=== PATIENT | male | born 1940 | race Caucasian/White ===

== ENCOUNTER → 2020-07-22 09:18 | Outpatient (CLI) | payer MEDICARE, SELFPAY ==
[2020-07-22 10:15] LABS: Add Manual Diff / Slide Review NO; Basophils Absolute Auto 100 /uL (0-100); Basophils Percent Auto 1.3 % (0-2); Eosinophils Absolute Auto 100 /uL (0-450); Eosinophils Percent Auto 0.8 % (2-4); Hemoglobin 12.1 g/dL (13.5-17.5); Lymphocytes Absolute Auto 2000 /uL (1100-4500); Lymphocytes Percent Auto 20.9 % (25-40); Mean Corpuscular HGB Conc 32.7 % (30-36); Mean Corpuscular Hemoglobin 29.7 PG (26-34); Mean Corpuscular Volume 90.7 fL (80-100); Monocytes Absolute Auto 1000 /uL (0-900); Monocytes Percent Auto 10.4 % (3-14); Neutrophils Absolute Auto 6500 /uL (1500-7000); Neutrophils Percent Auto 66.6 % (50-75); Platelet Count 376 X10^3/uL (150-400); Red Blood Cell Count 4.08 X10^6/uL (4.5-5.9); Red Cell Distribution Width 14.1 % (11.6-14.8); White Blood Cell Count 9.7 X10^3/uL (4.5-11.0)
[2020-07-22 11:16] LABS: Creatinine Urine Random 90.2 mg/dL
[2020-07-22 11:18] LABS: Microalbumin Urine Random 3.7 mg/dL (0-1.6)
[2020-07-22 11:43] LABS: Alanine Aminotransferase 25 IU/L (<50); Albumin 4.1 g/dL (3.5-5.0); Albumin Globulin Ratio 1.2 (1.0-2.8); Alkaline Phosphatase 172 U/L (38-126); Aspartate Aminotransferase 27 IU/L (17-59); BUN Creatinine Ratio 19.8 (6-22); Bilirubin Total 0.7 mg/dL (0.2-1.3); Blood Urea Nitrogen 19 mg/dL (9-20); Calcium 10.5 mg/dL (8.4-10.2); Carbon Dioxide 29 mmol/L (22-32); Chloride 105 mmol/L (98-107); Cholesterol 92 mg/dL (140-199); Estimated Glomerular Filt Rate > 60.0 mL/min (>60); Globulin 3.3 g/dL (1.7-4.1); Glucose 132 mg/dL (80-110); HDL Cholesterol 25 mg/dL (40-60); HEMOLYSIS < 15 (0-50); LDL Cholesterol Calculated 53 mg/dL (<100); Potassium 4.7 mmol/L (3.4-5.1); Sodium 141 mmol/L (137-145); TSH w/ Reflex to FT4 2.02 uIU/mL (0.47-4.68); Total Protein 7.4 g/dL (6.3-8.2); Triglycerides 69 mg/dL (35-150)
[2020-07-22 12:11] LABS: Hemoglobin A1C% w Est Avg Glu 7.6 % (4.0-6.0)
== END ==
PROVIDERS: PCP Family Medicine; Referring Provider Family Medicine; Visit Provider Family Medicine
DX: I25.10 Atherosclerotic heart disease of native coronary artery without angina pectoris (principal); R73.03 Prediabetes; Z12.11 Encounter for screening for malignant neoplasm of colon; Z12.5 Encounter for screening for malignant neoplasm of prostate; Z13.220 Encounter for screening for lipoid disorders; Z13.29 Encounter for screening for other suspected endocrine disorder; Z95.1 Presence of aortocoronary bypass graft
CPT/HCPCS: 36415; 80053; 80061; 82043; 82570; 83036; 84443; 85025; G0103

== ENCOUNTER → 2020-07-24 15:46 | Outpatient (CLI) | payer MEDICARE, SELFPAY ==
[2020-07-24 16:39] LABS: Reticulocyte Count, Percent 0.4 % (0.87-2.60)
[2020-07-24 17:09] LABS: Ferritin 74 ng/mL (18-464)
[2020-07-24 17:40] LABS: Folate 15.5 ng/mL (2.76-20.0); Vitamin B12 Reflex MMA if <400 874 pg/mL (239-931)
[2020-07-25 18:11] LABS: Calcium 9.6 mg/dL (8.6-10.2); Parathyroid Hormone, Intact 40 pg/mL (15-65)
== END ==
PROVIDERS: PCP Family Medicine; Referring Provider Family Medicine; Visit Provider Family Medicine
DX: D64.9 Anemia, unspecified (principal); E83.52 Hypercalcemia; R41.89 Other symptoms and signs involving cognitive functions and awareness
CPT/HCPCS: 36415; 82310; 82607; 82728; 82746; 83970; 85045

== ENCOUNTER → 2020-07-25 18:02 | Outpatient (ROUT) | payer MEDICARE, SELFPAY ==
[2020-07-26 15:41] LABS: Fecal Immunochemical Test Negative (Negative)
== END ==
PROVIDERS: PCP Family Medicine; Visit Provider Family Medicine
DX: I25.10 Atherosclerotic heart disease of native coronary artery without angina pectoris (principal); R73.03 Prediabetes; Z12.11 Encounter for screening for malignant neoplasm of colon; Z12.5 Encounter for screening for malignant neoplasm of prostate; Z13.220 Encounter for screening for lipoid disorders; Z13.29 Encounter for screening for other suspected endocrine disorder; Z95.1 Presence of aortocoronary bypass graft
CPT/HCPCS: 82274

== ENCOUNTER → 2020-11-12 09:09 | Outpatient (CLI) | payer MEDICARE, SELFPAY ==
[2020-11-12 11:27] LABS: Prostate Specific Antigen 6.06 ng/mL (0.10-4.00)
== END ==
PROVIDERS: Specialist; PCP Family Medicine; Referring Provider Family Medicine; Visit Provider Family Medicine
DX: N40.0 Benign prostatic hyperplasia without lower urinary tract symptoms (principal)
CPT/HCPCS: 36415; 84153

== ENCOUNTER → 2021-01-13 15:23 | Outpatient (CLI) | payer MEDICARE, SELFPAY ==
[2021-01-13 16:18] LABS: BUN Creatinine Ratio 23.1 (6-22); Blood Urea Nitrogen 24 mg/dL (9-20); Carbon Dioxide 27 mmol/L (22-32); Chloride 105 mmol/L (98-107); Estimated Glomerular Filt Rate > 60.0 mL/min (>60); Glucose 140 mg/dL (80-110); HEMOLYSIS < 15 (0-50); Potassium 4.7 mmol/L (3.4-5.1); Sodium 140 mmol/L (137-145)
== END ==
PROVIDERS: PCP Family Medicine; Referring Provider Specialist; Visit Provider Specialist
DX: R94.4 Abnormal results of kidney function studies (principal)
CPT/HCPCS: 36415; 80048

== ENCOUNTER → 2021-01-13 15:25 | Outpatient (CLI) | payer MEDICARE, SELFPAY ==
--- NOTE | 2021-01-13 15:26 | DI.ECHO.S_ITS ---
[place] [facility] +---------+ : : [address] : : : : [id number] : : : : Phone: [phone]+ Echocardiogram Report + + :Name: BURT MONTANO Study Date: 01/13/2021 Height: 70 in : :[facility] ReadingLocation: Weight: 202 lb : : Gender: Male BSA: 2.1 m2 : :: 1940 Age: 80 yrs BP: 141/80 mmHg: :Reason For Study: CARDIAC MURMUR : :Ordering Physician: JOSEFINA, : :LUCY Performed By: Megan Nagy : :Referring: LUCY ROCHA : + + Interpretation Summary The left ventricle is normal in size. The ejection fraction is estimated to be 55-60%. Septal motion is consistent with conduction abnormality. There is septal wall mild hypokinesis. The right ventricle is mildly dilated. Right ventricular systolic function is mildly reduced. The aortic valve is mildly calcified. There is mild to moderately reduced leaflet mobility. The peak aortic velocity is 2.2 m/sec. The aortic valve mean gradient is 11.5 mmHg. The calculated aortic valve area is 1.4 cm2. There is mild to moderate aortic stenosis. Mild atherosclerotic plaque(s) in the aortic arch. Procedure: A two-dimensional transthoracic echocardiogram with color flow and Doppler was performed. The study quality was technically adequate. There is no prior echocardiogram noted for this patient. The patient was in sinus rhythm with heart rates between 72-77 bpm during the exam. Left Ventricle: The left ventricle is normal in size. Left ventricular wall thickness is mildly increased. There is no thrombus. The ejection fraction is estimated to be 55-60%. Septal motion is consistent with conduction abnormality. There is septal wall mild hypokinesis. Diastolic parameters suggest a relaxation abnormality of the left ventricle, consistent with probable normal filling pressures. Right Ventricle: The right ventricle is mildly dilated. Right ventricular systolic function is mildly reduced. Atria: The left atrium is mildly dilated. Right atrial size is normal. There is no Doppler evidence for an interatrial shunt. The atrial septum is aneurysmal. Mitral Valve: The mitral valve leaflets appear mildly thickened, but open well. There is mild mitral annular calcification. The mitral valve chordae are thickened and/or calcified. There is trace mitral regurgitation. Aortic Valve: The aortic valve is trileaflet. The aortic valve is mildly calcified. There is mild to moderately reduced leaflet mobility. The peak aortic velocity is 2.2 m/sec. The aortic valve mean gradient is 11.5 mmHg. The calculated aortic valve area is 1.4 cm2. There is mild to moderate aortic stenosis. No aortic regurgitation is present. Tricuspid Valve: The tricuspid valve is normal in structure and function. Pulmonary artery pressures cannot be estimated because of the lack of a measurable TR jet velocity but the IVC suggests a CVP of around 3 mmHg. There is trace tricuspid regurgitation. Pulmonic Valve: The pulmonic valve is not well seen, but is grossly normal. There is trace pulmonic regurgitation. Great Vessels: The aortic root is normal size. The ascending aorta could not be visualized. Mild atherosclerotic plaque(s) in the aortic arch. The IVC is of normal diameter and collapses greater than 50% with a sniff. This suggests a low right atrial pressure of 3 mm Hg. Pericardium/ Pleura There is no pericardial effusion. There is no pleural effusion. MMode/2D Measurements & Calculations LVIDd: 4.9 cm LVOT diam: 2.0 cm LVIDs: 3.1 cm Ao root diam: 3.4 cm FS: 35.8 % Ao Arch Diam (Prox Trans): 3.0 cm EPSS: 1.1 cm IVSd: 0.95 cm LVPWd: 1.3 cm LV gallardo. diameter/BSA (cm/m^2): 2.3 LV sys. diameter/BSA (cm/m^2): 1.5 LA A2 area: 21.9 cm2 RA long axis: 6.1 cm LA A4 area: 22.1 cm2 RA area: 20.1 cm2 LA length (vol): 5.9 cm RA vol: 56.3 ml LA vol: 70.2 ml RA : 26.9 ml/m2 LA vol index: 33.5 ml/m2 IVC diam: 0.78 cm RVD1 (basal): 4.4 cm TAPSE: 1.0 cm Doppler Measurements & Calculations Ao V2 max: 221.9 cm/sec LVOT Max Phillip: 99.4 cm/sec Ao V2 mean: 158.7 cm/sec LV V1 max P.0 mmHg Ao max P.1 mmHg LV V1 VTI: 20.2 cm Ao mean P.5 mmHg NATASHA(I,D): 1.4 cm2 Ao V2 VTI: 47.7 cm NATASHA(V,D): 1.4 cm2 sev ratio: 0.42 NATASHA indexed to BSA (cm^2/m^2): 0.65 MV E max phillip: 70.7 cm/sec PA V2 max: 91.3 cm/sec MV A max phillip: 113.9 cm/sec PA V2 mean: 66.4 cm/sec MV E/A: 0.62 PA mean P.9 mmHg Med Peak E' Phillip: 5.2 cm/sec PA pr(Accel): 39.6 mmHg E/E' med: 13.5 Lat Peak E' Phillip: 8.6 cm/sec E/E' lat: 8.2 E/e' average: 10.9 MV dec time: 0.22 sec SV(LVOT): 65.3 ml Reading Physician:01:08 PM
== END ==
PROVIDERS: PCP Family Medicine; Referring Provider Internal Medicine Cardiovascular Disease; Visit Provider Internal Medicine Cardiovascular Disease
DX: I35.0 Nonrheumatic aortic (valve) stenosis (principal); I70.0 Atherosclerosis of aorta; R01.1 Cardiac murmur, unspecified
CPT/HCPCS: 93306

== ENCOUNTER → 2021-01-21 13:02 | Outpatient (CLI) | payer MEDICARE, SELFPAY ==
--- NOTE | 2021-01-21 13:18 | DI.CT.S_ITS ---
PROCEDURE: CT ABDOMEN PELVIS WO/W CON INDICATIONS: Elevated PSA TECHNIQUE: After the administration of oral contrast, 5 mm thick sections acquired from the diaphragms to the iliac crests. After the administration of intravenous contrast, 5 mm thick sections acquired from the diaphragms to the symphysis. 5 mm thick coronal and sagittal reformats were acquired. For radiation dose reduction, the following was used: automated exposure control, adjustment of mA and/or kV according to patient size. COMPARISON: None. FINDINGS: Image quality: Excellent. ABDOMEN: Lung bases: Lung bases are clear. Heart size is normal. Solid organs: Liver is normal in size and enhancement. Gallbladder appears normal. Biliary system is non-dilated. Pancreas enhances normally. Spleen is normal in size and enhancement. No adrenal nodules. Both kidneys are normal in size. No hydronephrosis or nephrolithiasis. At the left kidney there are 2 cysts, 1 anteriorly having a high internal radiodensity of 60.2 which does not rise with contrast enhancement, and the 2nd set more posteriorly having a water density of -2.3 Hounsfield units. Bowel and peritoneum: Stomach, small and large bowel loops are normal in caliber and wall thickness. No free fluid or air. Nodes and vessels: No retroperitoneal or mesenteric adenopathy by size criteria. Aorta and inferior vena are normal in caliber. Miscellaneous: There is a periumbilical ventral hernia containing a single small bowel loop that it does not appear incarcerated or edematous.. PELVIS: Genitourinary: Bladder wall thickness is normal. The prostate gland is moderately enlarged and appears mildly heterogeneous. A prosthetic mass extending into adjacent structures is not seen Miscellaneous: No inguinal hernias or definite adenopathy but there are 2 small lymph nodes at the external iliac node chain, measuring up to 1.1 x 1.2 cm on the right and 1.0 x 1.5 cm on the left. These do not demonstrate a fatty hilum and may be early manifestation of lazaro metastatic disease. This is seen on series 4, image 172.. Bones: No suspicious bony lesions. No vertebral body compression fractures. IMPRESSION: 1. There are left-sided renal cysts that measure both water and elevated in radiodensity but show no contrast enhancement or malignant-appearing characteristics. No follow-up necessary. 2. There are lymph nodes at the external iliac node chain, 1 each bilaterally, which are of a size and morphology which raises concern for possible early lazaro metastatic disease. Follow-up attention to these structures on subsequent imaging is recommended. 3. No osseous metastatic disease found. Incidental note made of a small periumbilical hernia without evidence of incarceration or strangulation. Dictated by: Zenon Powers M.D. on 01/21/2021 at 16:51 Approved by: Zenon Powers M.D. on 01/21/2021 at 17:00
== END ==
PROVIDERS: PCP Family Medicine; Referring Provider Specialist; Visit Provider Specialist
DX: R97.20 Elevated prostate specific antigen [PSA] (principal); N28.1 Cyst of kidney, acquired; R93.5 Abnormal findings on diagnostic imaging of other abdominal regions, including retroperitoneum
CPT/HCPCS: 74178

== ENCOUNTER → 2021-05-26 08:28 | Outpatient (CLI) | payer MEDICARE, SELFPAY ==
[2021-05-26 14:39] LABS: COVID19 -Nasal RAPID Negative (Negative)
== END ==
PROVIDERS: PCP Family Medicine; Visit Provider Physician Assistant
DX: Z20.822 Contact with and (suspected) exposure to COVID-19 (principal); Z01.812 Encounter for preprocedural laboratory examination
CPT/HCPCS: 87635; C9803

== ENCOUNTER 2021-05-27 07:16 | Day surgery (SDC) | payer MEDICARE, SELFPAY ==
[2021-05-27 07:31] VITALS: BP 154/70; PULSE 74; RESP 18; TEMP 36.2; O2SAT 96; BMI 29.1
[2021-05-27] MEDS: PROPARACAINE 0.5% OPHTH SOL 2 DROPS EYE-OP (07:47)
[2021-05-27] MEDS: CATARACT EYE COMPOUND (10 DROPS/SYRINGE) 3 DROPS EYE-OP (07:49)
--- NOTE | 2021-05-27 09:20 | PM.PREOP ---
Pre-operative Note Interval Note History & Physical reviewed/Exam performed by Physician: Yes Changes to H&P: No
--- NOTE | 2021-05-27 09:20 | PM.OP.1 ---
Operative Date/Time/Diagnoses Pre-op diagnosis: Nuclear Cataract Left eye Post-op diagnosis: same Procedure & Clinicians Surgeon: Taj Gregory Anesthesia Type: MAC +/- and Sedation Operative Notes Procedure in detail: Patient brought to the operating suite. Tetracaine drops placed in the left eye. Patient was prepped and draped in sterile manner. Wire lid speculum was placed in the eye. Betadine drops were placed on the eye. This was irrigated. Lidocaine jelly was placed on the eye. A paracentesis port was created with a side-port blade. 0.1 mL 1% preservative free lidocaine was injected into the anterior chamber. The anterior chamber was deepened with viscoelastic. 2.6 mm keratome was used to create a temporal clear corneal incision. Cystotome and Utrata forceps were used to create continuous tear capsulorrhexis. Balanced salt solution was used to hydro dissect the nucleus. The phacoemulsification handpiece was inserted and the nucleus was removed using the stop and chop technique. The irrigation aspiration handpiece was inserted and the remaining cortex was removed. Anterior chamber was deepened with viscoelastic. An Dewey DIB00 intraocular lens with a power of ??? was injected into the capsular bag. Irrigation aspiration handpiece was inserted and the remaining viscoelastic was removed. Incision was hydrated with balanced salt solution and found to be leak free with pressure with Weck-Sheryl sponges. 0.1 mL Vigamox injected anterior chamber. 0.3 mL Kenalog 10 mg was injected subconjunctivally. Lid speculum was removed. The patient left the operating room in excellent condition. Complications: none Post-operative Condition: stable Disposition: same day surgery
--- NOTE | 2021-05-27 09:21 | PM.OP.1 ---
Operative Date/Time/Diagnoses Pre-op diagnosis: Nuclear cataract right eye Procedure & Clinicians Procedure: Cataract Surgery Same procedure as scheduled: Yes Surgeon: Taj Gregory Anesthesia Type: MAC +/- and Sedation Operative Notes Procedure in detail: Patient brought to the operating suite. Tetracaine drops placed in the right eye. The marking instrument was used to john the vertical and horizontal meridians. Patient was prepped and draped in sterile manner. Wire lid speculum was placed in the eye. Betadine drops were placed on the eye. This was irrigated. Lidocaine jelly was placed on the eye. A paracentesis port was created with a side-port blade. 0.1 mL 1% preservative free lidocaine was injected into the anterior chamber. The anterior chamber was deepened with viscoelastic. 2.6 mm keratome was used to create a temporal clear corneal incision. Cystotome and Utrata forceps were used to create continuous tear capsulorrhexis. Balanced salt solution was used to hydro dissect the nucleus. The phacoemulsification handpiece was inserted and the nucleus was removed using the stop and chop technique. The irrigation aspiration handpiece was inserted and the remaining cortex was removed. Anterior chamber was deepened with viscoelastic. An Dewey [id number] intraocular lens with a power of 22.0 was injected into the capsular bag. Irrigation aspiration handpiece was inserted and the remaining viscoelastic was removed. The lens was rotated to the 180 degree meridian. Incision was hydrated with balanced salt solution and found to be leak free with pressure with Weck-Sheryl sponges. 0.1 mL Vigamox injected anterior chamber. 0.3 mL Kenalog 10 mg was injected subconjunctivally. Lid speculum was removed. The patient left the operating room in excellent condition. Complications: none Post-operative Condition: stable Disposition: same day surgery
[2021-05-27] MEDS: PHENYLEPHRINE/LIDOCAINE VIAL (OR) 0.2 ML EYE-OP (09:41)
[2021-05-27] MEDS: HYALURONATE SODIUM 30 MG-10 MG/ML SYRINGES 1 BOX INTRAOCULA (09:41)
[2021-05-27] MEDS: TETRACAINE 0.5% OPHTH DROPS 4 ML 2 DROPS EYE-OP (09:42)
[2021-05-27] MEDS: MOXIFLOXACIN INJ 4 MG/0.8 ML VIAL 0.5 MG EYE-OP (09:42)
[2021-05-27] MEDS: BALANCED SALT IRRIG SOLN NO.2 500 ML, EPINEPHrine 1 MG IRR (09:42)
[2021-05-27] MEDS: LIDOCAINE 2% (GLYDO) 6 ML GEL TOP (09:42)
[2021-05-27] MEDS: TRIAMCINOLONE 50 MG/5 ML VIAL INJ (09:43)
[2021-05-27 10:09] VITALS: BP 120/68; PULSE 68; RESP 14; TEMP 36.2; O2SAT 96
== END 2021-05-27 10:18 | disposition home or self-care (01) ==
PROVIDERS: PCP Family Medicine; Referring Provider Ophthalmology; Visit Provider Ophthalmology
PROC: (CPT 66984; principal; 2021-05-27 09:15)
DX: H25.11 Age-related nuclear cataract, right eye (principal); I10 Essential (primary) hypertension; E11.9 Type 2 diabetes mellitus without complications; Z79.84 Long term (current) use of oral hypoglycemic drugs; F03.90 Unspecified dementia, unspecified severity, without behavioral disturbance, psychotic disturbance, mood disturbance, and anxiety; I25.10 Atherosclerotic heart disease of native coronary artery without angina pectoris
CPT/HCPCS: 66984; J0171; J2250; J3010; J3301; V2787

== ENCOUNTER → 2021-07-24 07:56 | Outpatient (CLI) | payer MEDICARE, SELFPAY ==
[2021-07-24 08:31] LABS: Add Manual Diff / Slide Review NO; Basophils Absolute Auto 0 /uL (0-100); Basophils Percent Auto 0.5 % (0-2); Eosinophils Absolute Auto 100 /uL (0-450); Eosinophils Percent Auto 0.9 % (2-4); Hematocrit 34.8 % (41-53); Hemoglobin 11.5 g/dL (13.5-17.5); Lymphocytes Absolute Auto 2300 /uL (1100-4500); Lymphocytes Percent Auto 25.8 % (25-40); Mean Corpuscular HGB Conc 33.2 % (30-36); Mean Corpuscular Hemoglobin 29.9 PG (26-34); Mean Corpuscular Volume 90.2 fL (80-100); Monocytes Absolute Auto 900 /uL (0-900); Monocytes Percent Auto 10.6 % (3-14); Neutrophils Absolute Auto 5500 /uL (1500-7000); Neutrophils Percent Auto 62.2 % (50-75); Platelet Count 346 X10^3/uL (150-400); Red Blood Cell Count 3.86 X10^6/uL (4.5-5.9); Red Cell Distribution Width 14.1 % (11.6-14.8); White Blood Cell Count 8.8 X10^3/uL (4.5-11.0)
[2021-07-24 08:40] LABS: Hemoglobin A1C% w Est Avg Glu 7.3 % (4.0-6.0)
[2021-07-24 10:51] LABS: Alanine Aminotransferase 16 IU/L (<50); Albumin 4.1 g/dL (3.5-5.0); Albumin Globulin Ratio 1.4 (1.0-2.8); Alkaline Phosphatase 138 U/L (38-126); Aspartate Aminotransferase 22 IU/L (17-59); BUN Creatinine Ratio 20.2 (6-22); Bilirubin Total 0.6 mg/dL (0.2-1.3); Blood Urea Nitrogen 23 mg/dL (9-20); Calcium 9.7 mg/dL (8.4-10.2); Carbon Dioxide 25 mmol/L (22-32); Chloride 105 mmol/L (98-107); Cholesterol 120 mg/dL (140-199); Estimated Glomerular Filt Rate > 60.0 mL/min (>60); Glucose 141 mg/dL (80-110); HDL Cholesterol 34 mg/dL (40-60); HEMOLYSIS < 15 (0-50); LDL Cholesterol Calculated 67 mg/dL (<100); Potassium 4.9 mmol/L (3.4-5.1); Sodium 139 mmol/L (137-145); Total Protein 7.1 g/dL (6.3-8.2); Triglycerides 95 mg/dL (35-150)
[2021-07-24 11:22] LABS: Prostate Specific Antigen Scrn 6.74 ng/mL (0.1-4.0)
== END ==
PROVIDERS: PCP Family Medicine; Referring Provider Family Medicine; Visit Provider Family Medicine
DX: D64.9 Anemia, unspecified (principal); R73.03 Prediabetes; I25.10 Atherosclerotic heart disease of native coronary artery without angina pectoris; Z12.5 Encounter for screening for malignant neoplasm of prostate; E83.52 Hypercalcemia; R53.83 Other fatigue; R97.20 Elevated prostate specific antigen [PSA]; Z95.1 Presence of aortocoronary bypass graft; R79.89 Other specified abnormal findings of blood chemistry; N40.0 Benign prostatic hyperplasia without lower urinary tract symptoms
CPT/HCPCS: 36415; 80053; 80061; 83036; 85025; G0103

== ENCOUNTER → 2021-07-28 12:48 | Outpatient (CLI) | payer MEDICARE, SELFPAY ==
[2021-07-28 15:05] LABS: COVID19 -Nasal RAPID Negative (Negative)
== END ==
PROVIDERS: PCP Family Medicine; Visit Provider Nurse Practitioner Family
DX: Z20.822 Contact with and (suspected) exposure to COVID-19 (principal); Z01.812 Encounter for preprocedural laboratory examination
CPT/HCPCS: 87635; C9803

== ENCOUNTER 2021-07-29 07:08 | Day surgery (SDC) | payer MEDICARE, SELFPAY ==
[2021-07-29] MEDS: PROPARACAINE 0.5% OPHTH SOL 2 DROPS EYE-OP (07:40)
[2021-07-29] MEDS: CATARACT EYE COMPOUND (10 DROPS/SYRINGE) 3 DROPS EYE-OP (07:46)
[2021-07-29 07:54] VITALS: BP 154/71; PULSE 66; RESP 20; TEMP 36.6; O2SAT 98; BMI 29.7
--- NOTE | 2021-07-29 08:33 | PM.PREOP ---
Pre-operative Note Interval Note History & Physical reviewed/Exam performed by Physician: Yes Changes to H&P: No
--- NOTE | 2021-07-29 08:33 | PM.OP.1 ---
Operative Date/Time/Diagnoses Pre-op diagnosis: Nuclear Cataract Left eye Post-op diagnosis: same Procedure & Clinicians Same procedure as scheduled: Yes Surgeon: Taj Gregory Anesthesia Type: MAC +/- and Sedation Operative Notes Procedure in detail: Patient brought to the operating suite. Tetracaine drops placed in the left eye. Marking instrument was used to john the vertical and horizontal meridians. Patient was prepped and draped in sterile manner. Wire lid speculum was placed in the eye. Betadine drops were placed on the eye. This was irrigated. Lidocaine jelly was placed on the eye. A paracentesis port was created with a side-port blade. 0.1 mL 1% preservative free lidocaine was injected into the anterior chamber. The anterior chamber was deepened with viscoelastic. 2.6 mm keratome was used to create a temporal clear corneal incision. Cystotome and Utrata forceps were used to create continuous tear capsulorrhexis. Balanced salt solution was used to hydro dissect the nucleus. The phacoemulsification handpiece was inserted and the nucleus was removed using the stop and chop technique. The irrigation aspiration handpiece was inserted and the remaining cortex was removed. Anterior chamber was deepened with viscoelastic. An Dewey [id number] intraocular lens with a power of 23.0 was injected into the capsular bag. Irrigation aspiration handpiece was inserted and the remaining viscoelastic was removed. The lens was rotated to the 180 degree meridian. Incision was hydrated with balanced salt solution and found to be leak free with pressure with Weck-Sheryl sponges. 0.1 mL Vigamox injected anterior chamber. 0.3 mL Kenalog 10 mg was injected subconjunctivally. Lid speculum was removed. The patient left the operating room in excellent condition. Complications: none Post-operative Condition: stable Disposition: same day surgery
[2021-07-29] MEDS: HYALURONATE SODIUM 30 MG-10 MG/ML SYRINGES 1 BOX INTRAOCULA (08:47)
[2021-07-29] MEDS: PHENYLEPHRINE/LIDOCAINE VIAL (OR) 0.2 ML EYE-OP (08:50)
[2021-07-29] MEDS: TRIAMCINOLONE 50 MG/5 ML VIAL INJ (08:50)
[2021-07-29] MEDS: MOXIFLOXACIN INJ 4 MG/0.8 ML VIAL 0.5 MG EYE-OP (08:50)
[2021-07-29] MEDS: TETRACAINE 0.5% OPHTH DROPS 4 ML 2 DROPS EYE-OP (08:52)
[2021-07-29] MEDS: BALANCED SALT IRRIG SOLN NO.2 500 ML, EPINEPHrine 1 MG IRR (08:52)
[2021-07-29] MEDS: LIDOCAINE 2% (GLYDO) 6 ML GEL TOP (08:52)
[2021-07-29 09:05] VITALS: BP 128/59; PULSE 65; RESP 12; TEMP 36.2; O2SAT 99
== END 2021-07-29 09:15 | disposition home or self-care (01) ==
PROVIDERS: PCP Family Medicine; Referring Provider Ophthalmology; Visit Provider Ophthalmology
PROC: (CPT 66984; principal; 2021-07-29 08:45)
DX: H25.12 Age-related nuclear cataract, left eye (principal); I10 Essential (primary) hypertension; E78.5 Hyperlipidemia, unspecified; E11.9 Type 2 diabetes mellitus without complications; Z79.84 Long term (current) use of oral hypoglycemic drugs; I25.10 Atherosclerotic heart disease of native coronary artery without angina pectoris
CPT/HCPCS: 66984; J0171; J2250; J3301; V2787

== ENCOUNTER → 2022-07-23 09:37 | Outpatient (CLI) | payer MEDICARE, SELFPAY ==
[2022-07-23 10:54] LABS: Add Manual Diff / Slide Review NO; Basophils Absolute Auto 0 /uL (0-100); Basophils Percent Auto 0.5 % (0-2); Eosinophils Absolute Auto 100 /uL (0-450); Eosinophils Percent Auto 0.9 % (2-4); Hematocrit 35.3 % (41-53); Lymphocytes Absolute Auto 1800 /uL (1100-4500); Lymphocytes Percent Auto 21.5 % (25-40); Mean Corpuscular HGB Conc 33.9 % (30-36); Mean Corpuscular Hemoglobin 30.6 PG (26-34); Mean Corpuscular Volume 90.3 fL (80-100); Monocytes Absolute Auto 900 /uL (0-900); Monocytes Percent Auto 10.4 % (3-14); Neutrophils Absolute Auto 5700 /uL (1500-7000); Neutrophils Percent Auto 66.7 % (50-75); Platelet Count 327 X10^3/uL (150-400); Red Blood Cell Count 3.91 X10^6/uL (4.5-5.9); Red Cell Distribution Width 13.8 % (11.6-14.8); White Blood Cell Count 8.5 X10^3/uL (4.5-11.0)
[2022-07-23 11:14] LABS: Alanine Aminotransferase 21 IU/L (<50); Albumin 4.3 g/dL (3.5-5.0); Albumin Globulin Ratio 1.3 (1.0-2.8); Alkaline Phosphatase 140 U/L (38-126); Aspartate Aminotransferase 22 IU/L (17-59); BUN Creatinine Ratio 23.6 (6-22); Bilirubin Total 0.8 mg/dL (0.2-1.3); Blood Urea Nitrogen 26 mg/dL (9-20); Calcium 10.2 mg/dL (8.4-10.2); Carbon Dioxide 27 mmol/L (22-32); Chloride 103 mmol/L (98-107); Estimated Glomerular Filt Rate > 60 mL/min (>60); Globulin 3.4 g/dL (1.7-4.1); Glucose 156 mg/dL (80-110); HEMOLYSIS < 15 (0-50); Iron 77 ug/dL (49-181); Potassium 4.8 mmol/L (3.4-5.1); Sodium 141 mmol/L (137-145); Total Protein 7.7 g/dL (6.3-8.2)
[2022-07-23 11:24] LABS: Percent Iron Saturation 26 % (20-50); Total Iron Binding Capacity 301 ug/dL (261-462); Transferrin 206 mg/dL (206-381)
[2022-07-23 11:45] LABS: Prostate Specific Antigen Scrn 2.63 ng/mL (0.1-4.0)
[2022-07-23 11:49] LABS: Ferritin 60 ng/mL (18-464)
[2022-07-23 12:04] LABS: Vitamin B12 963 pg/mL (239-931)
== END ==
PROVIDERS: PCP Family Medicine; Referring Provider Family Medicine; Visit Provider Family Medicine
DX: R97.20 Elevated prostate specific antigen [PSA] (principal); N40.0 Benign prostatic hyperplasia without lower urinary tract symptoms; Z12.5 Encounter for screening for malignant neoplasm of prostate
CPT/HCPCS: 36415; 80053; 82607; 82728; 83540; 83550; 85025; G0103

== ENCOUNTER → 2022-07-25 07:40 | Outpatient (CLI) | payer MEDICARE, SELFPAY ==
[2022-07-25 12:18] LABS: Cholesterol 136 mg/dL (140-199); HDL Cholesterol 29 mg/dL (40-60); LDL Cholesterol Calculated 88 mg/dL (<100); Triglycerides 93 mg/dL (35-150)
[2022-07-25 12:49] LABS: Prostate Specific Antigen 2.41 ng/mL (0.10-4.00)
[2022-07-25 13:39] LABS: Hemoglobin A1C% w Est Avg Glu 7.8 % (4.0-6.0)
== END ==
PROVIDERS: PCP Family Medicine; Referring Provider Family Medicine; Visit Provider Family Medicine
DX: E11.9 Type 2 diabetes mellitus without complications (principal); N40.0 Benign prostatic hyperplasia without lower urinary tract symptoms; I25.10 Atherosclerotic heart disease of native coronary artery without angina pectoris
CPT/HCPCS: 36415; 80061; 83036; 84153

== ENCOUNTER 2022-09-16 21:32 | Inpatient (IN) | payer MEDICARE, SELFPAY ==
[2022-09-16 21:37] VITALS: BP 167/76; PULSE 80; RESP 18; TEMP 36.6; O2SAT 95
--- NOTE | 2022-09-16 21:50 | DI.RAD.S_ITS ---
PROCEDURE: XR HIP W PEL IF DONE LT 2V INDICATIONS: fefl 4 days ago,can not stand on left leg TECHNIQUE: AP pelvis with AP and lateral views of the left hip. COMPARISON: None. FINDINGS: Bones: There is a minimally impacted fracture of the left femoral neck. No dislocations. Pelvic ring appears intact. No suspicious bony lesions. Soft tissues: The visualized bowel gas pattern is normal. No suspicious soft tissue calcifications. IMPRESSION: 1. Minimally impacted left femoral neck fracture. Dictated by: Usama Diallo M.D. on 09/16/2022 at 23:25 Approved by: Usama Diallo M.D. on 09/16/2022 at 23:26
--- NOTE | 2022-09-16 21:51 | DI.RAD.S_ITS ---
PROCEDURE: XR RIBS LT MIN 3V W CXR1V INDICATIONS: fell on left side 4 days ago TECHNIQUE: Three views of the left ribs were acquired, along with a single view chest. COMPARISON: None. FINDINGS: Surgical changes and devices: Postsurgical changes demonstrated in the mediastinum with multiple mediastinum wires. Bones and chest wall: No displaced rib fracture identified. No suspicious bony lesions. Overlying soft tissues appear unremarkable. Lungs and pleura: There is mild linear scarring in the left lung base. No pleural effusions or pneumothorax. Mediastinum: Mediastinal contours appear normal. Heart size is enlarged. IMPRESSION: 1. No displaced rib fracture identified. Dictated by: Usama Diallo M.D. on 09/16/2022 at 23:26 Approved by: Usama Diallo M.D. on 09/16/2022 at 23:28
--- NOTE | 2022-09-16 21:57 | ED_ITS ---
HPI - Extremity Injury (Lower) General Chief Complaint: Extremity Injury, Lower Stated Complaint: Left side and leg pain Time Seen by Provider: 09/16/22 21:54 Source: patient and EMS Mode of arrival: EMS History of Present Illness HPI Narrative: 82-year-old male who states that 4 days ago he was walking outside of a supermarket when he slipped and fell and landed on his left hip/side. He did not hit his head. Prior to the fall he did not get lightheaded or have chest pain or palpitations. He is not on blood thinners. He was able to get up and walk afterwards but since that time has had progressively worsening left hip pain/leg pain that has now caused him to not be able to put any pressure on his left leg. He also states that he hit the left side of his chest wall. Related Data Previous Rx's Medication Instructions Recorded finasteride 5 mg tablet See Rx Instructions .Route 06/26/22 .COMPLEX #90 tabs donepezil 10 mg tablet 10 mg PO BEDTIME #90 tabs 08/06/22 metformin 500 mg tablet,extended 500 mg PO BID #180 tabs 08/06/22 release 24 hr sertraline 100 mg tablet See Rx Instructions .Route 08/06/22 .COMPLEX #180 tabs atorvastatin 20 mg tablet 20 mg PO BEDTIME #90 tabs 09/09/22 Allergies Allergy/AdvReac Type Severity Reaction Status Date / Time morphine AdvReac Severe BP dropped Verified 08/06/22 13:37 rapidly Review of Systems Constitutional Constitutional: Reports system reviewed and no additional complaints, except as documented Cardiovascular Cardiovascular: Reports system reviewed and no additional complaints, except as documented Respiratory Respiratory: Reports system reviewed and no additional complaints, except as documented Gastrointestinal Gastrointestinal: Reports system reviewed and no additional complaints, except as documented Musculoskeletal Musculoskeletal: Reports system reviewed and no additional complaints, except as documented Integumentary/Breasts Skin/Breast: Reports system reviewed and no additional complaints, except as documented Neurologic Neurologic: Reports system reviewed and no additional complaints, except as documented Hematologic/Lymphatic On Anticoagulants: No Patient History Medical History Anemia BPH w/o urinary obs/LUTS Cognitive impairment Depression (~2009) Diabetes Elevated PSA measurement Hematuria Hypercalcemia Hyperlipidemia Plantar warts Prediabetes (~2014) Proteinuria Tinnitus (~1995) Type 2 diabetes mellitus Surgical History Anesthesia S/P triple vessel bypass (~2016) Social History marital status: number of children: 1 household members: spouse occupational status: previously employed Smoking Status: Former smoker Tobacco: How many years used: 3 alcohol intake: current substance use type: does not use caffeine: Yes Smoking Status: Former smoker alcohol intake frequency: holidays/special occasions only Substance Use Type: does not use Exam Initial Vital Signs Initial Vital Signs: Vital Signs Temperature 97.9 F 09/16/22 21:37 Pulse Rate 80 09/16/22 21:37 Respiratory Rate 18 09/16/22 21:37 Blood Pressure 167/76 H 09/16/22 21:37 Pulse Oximetry 95 09/16/22 21:37 Oxygen Delivery Method 09/16/22 21:37 Const General: cooperative, comfortable and No ill appearing HENMT Head: normal to inspection and normocephalic Chest Other: Some tenderness to palpation left lower lateral chest wall Resp Effort & Inspection: normal respiratory effort Auscultation: clear to auscultation bilaterally Cardio Rate: regular rate GI Inspection: normal to inspection Skin General: no rashes or lesions noted Neuro General: patient alert and patient awake Speech: speech normal Extrem Other: Tenderness to palpation left hemipelvis. Does have some tenderness the left femur as well. His left knee and ankle are unremarkable. His right lower extremity and bilateral upper extremities unremarkable. Course Orders Ordered: ED Orders 09/16/22 21:50 XR hip w pel if done LT 2V Stat 09/16/22 21:51 XR ribs LT min 3V w CXR1V Stat 09/16/22 23:45 COVID19 - ADMIT ([employer] swab/PCR) Stat 09/16/22 23:57 Consult to Orthopedic Surgery Urgent Basic Metabolic Panel Stat Complete Blood Count AUTO DIFF Stat Fentanyl (Fentanyl 100 Mcg/2 Ml Inj) 25 mcg IV Q2HR PRN PRN Reason: Pain, Mild (1-3) Sodium Chloride (Normal Saline 0.9%) 1,000 mls @ 125 mls/hr IV CONT APRIL Last Admin: 09/17/22 00:32 Dose: 125 mls/hr Documented By: DKB Ondansetron HCl (Ondansetron 4 Mg/2 Ml Inj) 4 mg IV Q4HR PRN PRN Reason: Nausea And Vomiting Vital Signs Vital signs: Vital Signs - 8 hr 09/16/22 21:37 Temperature 97.9 F Pulse Rate 80 Respiratory Rate 18 Blood Pressure 167/76 H Pulse Oximetry 95 Oxygen Delivery Method Room Air MDM - Extremity Injury (Lower) Lab Data Attestation: I reviewed the patient's lab results. Result diagrams: 09/16/22 23:57 09/16/22 23:57 Labs: Lab Results 09/16/22 09/16/22 09/16/22 Range/Units 23:45 23:57 23:57 WBC 12.7 H (4.5-11.0) X10^3/uL RBC 3.59 L (4.5-5.9) X10^6/uL Hgb 10.5 L (13.5-17.5) g/dL Hct 32.3 L (41-53) % MCV 90.0 (80-100) fL MCH 29.4 (26-34) PG MCHC 32.6 (30-36) % RDW 14.4 (11.6-14.8) % Plt Count 289 (150-400) X10^3/uL Neut % (Auto) 76.8 H (50-75) % Lymph % (Auto) 11.5 L (25-40) % [place] % (Auto) 9.5 (3-14) % Eos % (Auto) 0.9 L (2-4) % Baso % (Auto) 1.3 (0-2) % Neut # (Auto) 9800 H (9602-2976) /uL Lymph # (Auto) 1500 (4341-9301) /uL [place] # (Auto) 1200 H (0-900) /uL Eos # (Auto) 100 (0-450) /uL Baso # (Auto) 200 H (0-100) /uL Sodium 140 (137-145) mmol/L Potassium 4.1 (3.4-5.1) mmol/L Chloride 104 (98-107) mmol/L Carbon Dioxide 26 (22-32) mmol/L BUN 23 H (9-20) mg/dL Creatinine 0.94 (0.66-1.25) mg/dL Estimated GFR > 60 (>60) mL/min BUN/Creatinine Ratio 24.5 H (6-22) Glucose 166 H (80-110) mg/dL Calcium 9.6 (8.4-10.2) mg/dL SARS-CoV-2 (PCR) Negative (Negative) Imaging Data Extremity x-ray #1: Radiologist's Impression: [address] [address] XRay Report Signed Patient: Chinedu Perez MR#: [id number] : 1940 Acct:[id number] Age/Sex: 82 / M Date of Service: 09/16/22 Loc: ED Accession Number: [id number] ?? Procedure: XR hip w pel if done LT 2V Ordering Provider: Kevan Logan D.O. PROCEDURE:? XR HIP W PEL IF DONE LT 2V ? INDICATIONS:? fefl 4 days ago,can not stand on left leg ? TECHNIQUE:? AP pelvis with AP and lateral views of the left hip. ? COMPARISON:? None. ? FINDINGS:? ? Bones:? There is a minimally impacted fracture of the left femoral neck.? No dislocations.? Pelvic ring appears intact.? No suspicious bony lesions.? ? Soft tissues:? The visualized bowel gas pattern is normal.? No suspicious soft tissue calcifications.? ? ? IMPRESSION:? ? 1. Minimally impacted left femoral neck fracture. ? ? ? Dictated by: Usama Diallo M.D. on 09/16/2022 at 23:25 ? ? Approved by: Usama Diallo M.D. on 09/16/2022 at 23:26?? rib x-ray: Radiologist's Impression: [address] [address] XRay Report Signed Patient: Chinedu Perez MR#: [id number] : 1940 Acct:[id number] Age/Sex: 82 / M Date of Service: 09/16/22 Loc: ED Accession Number: [id number] ?? Procedure: XR ribs LT min 3V w CXR1V Ordering Provider: Kevan Logan D.O. PROCEDURE:? XR RIBS LT MIN 3V W CXR1V ? INDICATIONS:? fell on left side 4 days ago ? TECHNIQUE:? Three views of the left ribs were acquired, along with a single view chest.? ? COMPARISON:? None. ? FINDINGS:? ? Surgical changes and devices:? Postsurgical changes demonstrated in the medi astinum with multiple mediastinum wires.? ? Bones and chest wall:? No displaced rib fracture identified.? No suspicious bony lesions. ?Overlying soft tissues appear unremarkable.? ? Lungs and pleura:? There is mild linear scarring in the left lung base.? No pleural effusions or pneumothorax.? ? Mediastinum:? Mediastinal contours appear normal.? Heart size is enlarged.? ? IMPRESSION:? ? 1. No displaced rib fracture identified. ? ? Dictated by: Usama Diallo M.D. on 09/16/2022 at 23:26 ? ? Approved by: Usama Diallo M.D. on 09/16/2022 at 23:28? [facility] Narrative Medical decision making narrative: X-ray shows left femoral neck fracture. No fractures noted on rib x-rays. Patient reports no other injuries from the event. Discussed the case with Dr. Montoya with orthopedic surgery who will admit for further evaluation treatment. Discussed the need for admission with the patient and his they expressed understanding as well. Discharge Plan Departure Patient Disposition: Home Clinical Impression: Femoral neck fracture
[2022-09-17] VITALS (37 sets, daily range): BP systolic 124–191; BP diastolic 47–106; PULSE 60–93; RESP 16–27; TEMP 36.2–36.6; O2SAT 87–98; BMI 28.7
--- NOTE | 2022-09-17 | DI.RAD.S_ITS ---
PROCEDURE: XR HIP LT 1V INDICATIONS: POST OP TECHNIQUE: 2 view(s) of the hip acquired. COMPARISON: [facility], CR, XR HIP W PEL IF DONE LT 2V, 09/16/2022, 21:58. FINDINGS: Bones: Patient is status post left hip arthroplasty, with hardware components in expected positions. The hip joint appears congruent. The visualized bony structures appear intact. Soft tissues: Overlying postoperative changes are noted. No suspicious soft tissue densities. IMPRESSION: 1. Expected postsurgical changes status post left hip arthroplasty. Dictated by: Usama Diallo M.D. on 09/17/2022 at 21:08 Approved by: Usama Diallo M.D. on 09/17/2022 at 21:13
[2022-09-17 00:13] LABS: Add Manual Diff / Slide Review NO; Basophils Absolute Auto 200 /uL (0-100); Basophils Percent Auto 1.3 % (0-2); Eosinophils Absolute Auto 100 /uL (0-450); Eosinophils Percent Auto 0.9 % (2-4); Hematocrit 32.3 % (41-53); Hemoglobin 10.5 g/dL (13.5-17.5); Lymphocytes Absolute Auto 1500 /uL (1100-4500); Lymphocytes Percent Auto 11.5 % (25-40); Mean Corpuscular HGB Conc 32.6 % (30-36); Mean Corpuscular Hemoglobin 29.4 PG (26-34); Monocytes Absolute Auto 1200 /uL (0-900); Monocytes Percent Auto 9.5 % (3-14); Neutrophils Absolute Auto 9800 /uL (1500-7000); Neutrophils Percent Auto 76.8 % (50-75); Platelet Count 289 X10^3/uL (150-400); Red Blood Cell Count 3.59 X10^6/uL (4.5-5.9); Red Cell Distribution Width 14.4 % (11.6-14.8); White Blood Cell Count 12.7 X10^3/uL (4.5-11.0)
[2022-09-17 00:18] LABS: BUN Creatinine Ratio 24.5 (6-22); Blood Urea Nitrogen 23 mg/dL (9-20); Calcium 9.6 mg/dL (8.4-10.2); Carbon Dioxide 26 mmol/L (22-32); Chloride 104 mmol/L (98-107); Estimated Glomerular Filt Rate > 60 mL/min (>60); Glucose 166 mg/dL (80-110); HEMOLYSIS < 15 (0-50); Potassium 4.1 mmol/L (3.4-5.1); Sodium 140 mmol/L (137-145)
[2022-09-17] MEDS: SODIUM CHLORIDE 0.9% 1,000 ML 125 ML IV ×2 (00:32→08:51)
[2022-09-17 00:48] LABS: COVID19 - ADMIT (NP swab/PCR) Negative (Negative)
[2022-09-17] MEDS: fentaNYL 100 MCG/2 ML INJ 25 MCG IV ×4 (02:04→14:14)
--- NOTE | 2022-09-17 15:07 | P.HP_ITS ---
History of Present Illness History of Present Illness Date Patient Seen: 09/17/22 Time Patient Seen: 15:07 Chief complaint: Left side and leg pain Narrative: This is an 82 year old male with PMH of cognitive impairment, anemia, DM, HLD, Depression, BPH, CAD w/ 3v CABG in 2017, prior paroxysmal atrial fibrillation (no recurrences per cardiology note) not on AC or antiplatelet therapy who presented after a mechanical fall 5 days ago complaining of worsening left hip pain and difficulty with ambulation. Patient states that he was attempting to help someone with carts in the local [employer] parking lot when he fell onto his left side. He denies dizziness, chest pain, palpitations prior to the fall. He has had worsening left hip pain since the fall, and came in today with difficulty ambulating. His pain is sharp, occasionally cramping with occasional radiation, and is severe with movement now. He denies numbeness, unilateral weakness, slurred speech. He did not hit his head. He also hit his left chest wall which is uncomfortable but generally improving. Imaging reveals a minimally displaced L femoral neck fracture. CXR shows no rib fractures.EKG with sinus rhythm without evidence of ischemia. He denies recent shortness of breath, dyspnea on exertion. Plan is for OR later this evening with orthopedic surgery. Admitted to medicine for further management. Patient was initially admitted to orthopedic surgery, transferred to medical service later in the day. Patient History Medical History Anemia BPH w/o urinary obs/LUTS Cognitive impairment Depression (~2009) Diabetes Elevated PSA measurement Hematuria Hypercalcemia Hyperlipidemia Plantar warts Prediabetes (~2014) Proteinuria Tinnitus (~1995) Type 2 diabetes mellitus Surgical History Anesthesia S/P triple vessel bypass (~2016) Family & Social History Family History Mother No pertinent past medical history Father No pertinent past medical history Social History: household members spouse Safety & Behavioral: Feels Safe in Current Yes Environment Tobacco & Substance use: Tobacco type cigarettes Smoking Status Former smoker alcohol intake current alcohol intake frequency holiday/special occasion Substance Use Type does not use Meds Home Medications and Allergies Home Medications Medication Instructions Recorded Confirmed Type finasteride 5 mg tablet See Rx Instructions .Route 06/26/22 08/06/22 Rx .COMPLEX #90 tabs donepezil 10 mg tablet 10 mg PO BEDTIME #90 tabs 08/06/22 08/06/22 Rx metformin 500 mg tablet,extended 500 mg PO BID #180 tabs 08/06/22 08/06/22 Rx release 24 hr sertraline 100 mg tablet See Rx Instructions .Route 08/06/22 08/06/22 Rx .COMPLEX #180 tabs atorvastatin 20 mg tablet 20 mg PO BEDTIME #90 tabs 09/09/22 Rx Allergies Allergy/AdvReac Type Severity Reaction Status Date / Time morphine AdvReac Severe BP dropped Verified 09/17/22 16:05 rapidly Review of Systems Review of Systems Narrative: All other systems reviewed with the patient and are negative unless otherwise stated. Exam Vital Signs (past 8 hours): - 09/17/22 08:52 09/17/22 08:53 09/17/22 08:53 Temperature Pulse Rate 73 73 Respiratory Rate 24 Blood Pressure 169/74 H Pulse Oximetry 96 94 Oxygen Delivery Method Room Air Oxygen Flow Rate 09/17/22 09:00 09/17/22 09:30 09/17/22 10:00 Temperature Pulse Rate 66 66 64 Respiratory Rate Blood Pressure Pulse Oximetry 93 94 93 Oxygen Delivery Method Oxygen Flow Rate 09/17/22 10:02 09/17/22 10:02 09/17/22 14:44 Temperature 97.9 F Pulse Rate 65 63 Respiratory Rate 18 16 Blood Pressure 160/69 H 159/63 H Pulse Oximetry 95 98 96 Oxygen Delivery Method Oxygen Flow Rate 0 Oxygen Delivery Method Room Air Oxygen Flow Rate 0 Narrative Exam Narrative: General:? Patient is well developed and well nourished, in no distress at this time. HEENT:? Normocephalic, atraumatic, extraocular muscles intact, oral pharynx is clear and mucous membranes are moist. Neck: supple and symmetric, trachea is midline, no cervical adenopathy. Negative for JVD Chest:? Normal AP diameter and contour without kyphoscoliosis, no tachypnea, equal chest rise bilaterally. Lungs:? CTA b/l no wheezing rhonchi or rales. Cardio:?RRR no m/r/g. Abdomen: S NT ND. No CVA tenderness. Musculoskeletal:? Muscle strength and tone are equal within normal limits, no deformity. Extremities: No edema or joint effusions. No cyanosis or clubbing. Skin:? Pale,? Warm to touch,dry and intact without rashes, ulcerations or petechiae.? Neuro:? Alert and orientated x3,? sensation to touch intact in all extremities, no gross deficits noted of cranial nerves. Psych:? Patient has a well-kept appearance, appropriate affect, mental status attitude thought context and judgment are appropriate for age. Objective ECG Impression: NSR without evidence of acute ischemia as interpreted by me. Labs Result Diagrams: 09/16/22 23:57 09/16/22 23:57 Labs: Laboratory Results - last 24 hr 09/16/22 09/16/22 09/16/22 23:45 23:57 23:57 WBC 12.7 H RBC 3.59 L Hgb 10.5 L Hct 32.3 L MCV 90.0 MCH 29.4 MCHC 32.6 RDW 14.4 Plt Count 289 Neut % (Auto) 76.8 H Lymph % (Auto) 11.5 L [place] % (Auto) 9.5 Eos % (Auto) 0.9 L Baso % (Auto) 1.3 Neut # (Auto) 9800 H Lymph # (Auto) 1500 [place] # (Auto) 1200 H Eos # (Auto) 100 Baso # (Auto) 200 H Sodium 140 Potassium 4.1 Chloride 104 Carbon Dioxide 26 BUN 23 H Creatinine 0.94 Estimated GFR > 60 BUN/Creatinine Ratio 24.5 H Glucose 166 H Calcium 9.6 SARS-CoV-2 (PCR) Negative Assessment & Plan Assessment & Plan narrative: This is an 82 year old male with PMH of cognitive impairment, anemia, DM, HLD, Depression, BPH, CAD w/ 3v CABG in 2017, prior paroxysmal atrial fibrillation (no recurrences per cardiology note) not on AC or antiplatelet therapy who presented after a mechanical fall 5 days ago complaining of worsening left hip pain and difficulty with ambulation. Admitted with a left hip fracture. 1. Left femoral neck fracture, pathologic secondary to osteoporosis given ground level fall 5 days prior to admission. - plan for operative interventions this evening. He appears medically optimized but is high cardiac risk based on his prior 3v CABG. - continue telemetry post operatively. - appreciate orthopedic surgery consultation and management. 2. CAD s/p 3v CABG - patient not currently on antiplatelet therapy per choice, as noted in his cardiology record. Counseled on medical reasoning for aspirin with patient. 3. Paroxysmal atrial fibrillation, not present - tele post operatively, EKG shows normal sinus rhythm. Was reportedly in the setting of omega use per cardiology note. 4. DM2 - recent A1c with PCP was 7.8. Okay control given his age. - continue sliding scale for now given glucose 166 on admit, if elevated low threshold to start long acting coverage. - hold home metformin. 5. HLD - continue home statin. 6. Depression - continue sertraline 7. Cognitive impairment - continue donepezil Code: Full, surrogate is patient's spouse Hillary DVT: SCD prior to OR, per surgical service after Dispo: Admit inpatient as his stay is expected to exceed two midnights. I have utilized all available immediate resources to obtain, update, or review the patient's current medications. COVID-19 COVID-19 status: Negative Time Spent With Patient Critical Care time: I spent a total of [] minutes of critical care time on this patient's care today; this time is exclusive of procedural time.
--- NOTE | 2022-09-17 15:10 | P.CONS_ITS ---
History of Present Illness Consult details Date Patient Seen: 09/17/22 Time Patient Seen: 15:13 Chief complaint: Left side and leg pain Reason for consult: hip fracture Requesting provider: Kevan Logan Narrative: Patient is an 82-year-old male with a history of coronary artery disease status post bypass in 2017, diabetes, hypertension. His PCP is Dr. Martin Felix. He would a fall approximately 4 days ago in a parking lot onto his left side hitting his hip and is chest wall and ribs. He initially was able to ambulate and went home with his . He typically uses a cane holding in the right hand which he says is for balance. He states over the next couple of days things got progressively worse. Second day was painful and he was limping by the 3rd and the 4th day he could no longer ambulate. A finally got to the point his helped him to the bathroom he was struggling and they decided to call 911. He was brought to the hospital by EMS which demonstrated a minimally displaced femoral neck fracture he had x-rays of his ribs that did not identify any fractures. He was indicated for admission for his hip fracture. He endorses some pain with deep breathing due to the pain along his left chest wall. Denies shortness of breath. He takes metformin for his diabetes last hemoglobin A1c that is in the records is 7.8. I was asked by the on-call orthopedic surgeon Dr. Montoya to evaluate the patient. Meds Home Medications and Allergies Home Medications Medication Instructions Recorded Confirmed Type finasteride 5 mg tablet See Rx Instructions .Route 06/26/22 08/06/22 Rx .COMPLEX #90 tabs donepezil 10 mg tablet 10 mg PO BEDTIME #90 tabs 08/06/22 08/06/22 Rx metformin 500 mg tablet,extended 500 mg PO BID #180 tabs 08/06/22 08/06/22 Rx release 24 hr sertraline 100 mg tablet See Rx Instructions .Route 08/06/22 08/06/22 Rx .COMPLEX #180 tabs atorvastatin 20 mg tablet 20 mg PO BEDTIME #90 tabs 09/09/22 Rx Allergies Allergy/AdvReac Type Severity Reaction Status Date / Time morphine AdvReac Severe BP dropped Verified 08/06/22 13:37 rapidly Review of Systems Review of Systems Narrative: History high blood pressure patient complains of left-sided chest wall pain some difficulty with pain taking a deep breath but no shortness of breath no chest pain denies any loss of consciousness was injury. No numbness or tingling. Endorses left hip pain left now than previous as he just had pain medication. Otherwise 10 point review of systems negative ROS: Yes All systems reviewed with the patient and are negative except as otherwise documented Exam Vital Signs (past 8 hours): - 09/17/22 08:52 09/17/22 08:53 09/17/22 08:53 Temperature Pulse Rate 73 73 Respiratory Rate 24 Blood Pressure 169/74 H Pulse Oximetry 96 94 Oxygen Delivery Method Room Air Oxygen Flow Rate 09/17/22 09:00 09/17/22 09:30 09/17/22 10:00 Temperature Pulse Rate 66 66 64 Respiratory Rate Blood Pressure Pulse Oximetry 93 94 93 Oxygen Delivery Method Oxygen Flow Rate 09/17/22 10:02 09/17/22 10:02 09/17/22 14:44 Temperature 97.9 F Pulse Rate 65 63 Respiratory Rate 18 16 Blood Pressure 160/69 H 159/63 H Pulse Oximetry 95 98 96 Oxygen Delivery Method Oxygen Flow Rate 0 Oxygen Delivery Method Room Air Oxygen Flow Rate 0 Narrative Exam Narrative: General exam alert oriented male in no acute distress lying in the hospital bed. HEENT exam normocephalic atraumatic Respiratory exam unlabored on room air lungs are clear to auscultation. There is some tenderness along the left-sided chest wall. No obvious abnormalities. No accessory muscle use Heart regular rate and rhythm Upper extremities able to lift both arms up above his head. No bruising no deformity good strength palpable radial pulses Right lower extremity demonstrates normal rotation and alignment. Able to flex and extend the knee and ankle. Palpable dorsalis pedis pulse. Compartment soft Left lower extremity demonstrates grossly normal alignment. Tenderness around the hip. Patient demonstrates active dorsiflexion plantar flexion of the ankle. Compartments are soft. Palpable dorsalis pedis pulse. Objective Imaging AP pelvis and left hip x-ray: My impression: Mildly displaced left femoral neck fracture Labs Result Diagrams: 09/16/22 23:57 09/16/22 23:57 Labs: Laboratory Results - last 24 hr 09/16/22 09/16/22 09/16/22 23:45 23:57 23:57 WBC 12.7 H RBC 3.59 L Hgb 10.5 L Hct 32.3 L MCV 90.0 MCH 29.4 MCHC 32.6 RDW 14.4 Plt Count 289 Neut % (Auto) 76.8 H Lymph % (Auto) 11.5 L [place] % (Auto) 9.5 Eos % (Auto) 0.9 L Baso % (Auto) 1.3 Neut # (Auto) 9800 H Lymph # (Auto) 1500 [place] # (Auto) 1200 H Eos # (Auto) 100 Baso # (Auto) 200 H Sodium 140 Potassium 4.1 Chloride 104 Carbon Dioxide 26 BUN 23 H Creatinine 0.94 Estimated GFR > 60 BUN/Creatinine Ratio 24.5 H Glucose 166 H Calcium 9.6 SARS-CoV-2 (PCR) Negative PFSH Medical History Anemia BPH w/o urinary obs/LUTS Cognitive impairment Depression (~2009) Diabetes Elevated PSA measurement Hematuria Hypercalcemia Hyperlipidemia Plantar warts Prediabetes (~2014) Proteinuria Tinnitus (~1995) Type 2 diabetes mellitus Surgical History Anesthesia S/P triple vessel bypass (~2016) Family History (Updated 09/17/22 @ 15:19 by Michael Sanders DO) Mother No pertinent past medical history Father No pertinent past medical history Social History marital status: number of children: 1 household members: spouse occupational status: previously employed Tobacco & Substance Use Smoking Status: Former smoker Tobacco: How many years used: 3 alcohol intake: current substance use type: does not use Diet and Exercise caffeine: Yes Assessment & Plan Assessment and plan (1) Femoral neck fracture: Status: Acute (2) Osteoporotic hip fracture: Status: Acute Plan Partial hip replacement, hemiarthroplasty left femoral neck fracture, left femoral neck fracture osteoporotic insufficiency fracture from ground level fall. Mild displacement 4-day-old and increasingly difficult now unable to weightbear recommend arthroplasty over ORIF to allow immediate weight-bearing and to reduce the risk of nonunion. The risks and benefits of the procedure have been discussed with the patient and given the opportunity to ask questions. The risks of surgery include but are not limited to infection, malunion, nonunion, progressive arthritis, persistence of pain, damage to nerves and blood vessels, posttraumatic arthritis, DVT, PE, coardiopulmonary complications and . The patient expressed a thorough understanding of the risks and benefits of surgery and has elected to proceed. Consent was signed. The patient has also been discussed with the hospitalist Dr. Diego. The patient's labs have been reviewed. Moderate hypertension no contraindications to proceeding with surgery. Patient has been NPO today. Appreciate hospitalist management up to fixation. Plan to proceed with surgery this evening for hemia rthroplasty left hip COVID-19 COVID-19 status: Negative Time Spent With Patient Time with patient: less than 30 minutes Critical Care time: I spent a total of [] minutes of critical care time on this patient's care today; this time is exclusive of procedural time.
[2022-09-17] MEDS: LACTATED RINGERS 1,000 ML 42 ML IV ×3 (16:14→19:25)
[2022-09-17] MEDS: CEFAZOLIN 2 GM/100 ML PREMIX 100 ML IV (17:10)
--- NOTE | 2022-09-17 17:17 | DI.RAD.S_ITS ---
PROCEDURE: XR PELVIS 1-2V INDICATIONS: surgery irene, intra op TECHNIQUE: Intra-operative view of the pelvis and hip acquired. COMPARISON: None. FINDINGS: Bones: Intraoperative devices prior to placement of arthroplasty prostheses are in expected positions. No fractures or suspicious bony lesions. Soft tissues: Overlying surgical retractors are present, along with other intraoperative changes. IMPRESSION: Intraoperative images of pelvis shows left hip arthroplasty in progress. Dictated by: Neil Wilson M.D. on 09/17/2022 at 18:50 Approved by: Neil Wilson M.D. on 09/17/2022 at 18:50
[2022-09-17] MEDS: TRANEXAMIC ACID 1,000 MG VIAL 1000 MG INJ ×2 (17:20→19:27)
--- NOTE | 2022-09-17 17:51 | SUR.OPER ---
Lateral on padded or bed, head on pillow, gel axillary roll in place, gel underneath right elbow to pad, bottom leg bent with gel pad under knee to foot, upper leg straight and supported by surgeon and assist. Upper arm supported by pillows and secured over bottom arm to padded arm board. Hip roofing layer positioners used and placed by surgeon with padding over positioners.
--- NOTE | 2022-09-17 18:13 | PC.NURSE ---
Pt arrived from ED at approximately 1400. He is A&Ox3, VSS, afebrile on RA. LS CTA. He reports pain 6-8/10 upon reassessment with fentanyl 25mcg prn. He is kept NPO for scheduled surgery with Dr. Pedraza this evening. at bedside supportive. Skin is intact with the exception of two small scab abrasions. He is taken to [facility] at 1600 by bed.
[2022-09-17] MEDS: BUPIVACAINE LIPOSOME 266 MG/20 ML VIAL INJ (18:35)
[2022-09-17] MEDS: BUPIVACAINE 0.5% W/ EPI (PF) 30 ML VIAL INJ (18:36)
[2022-09-17] MEDS: SODIUM CHLORIDE IRRIG SOLUTION 250 ML, EPINEPHrine 1 MG IRR (18:51)
--- NOTE | 2022-09-17 20:17 | PM.OP.1 ---
Operative Date/Time/Diagnoses Date of procedure: 09/17/22 Time of procedure: 20:17 Pre-op diagnosis: Left femoral neck fracture, osteoporotic hip fracture Post-op diagnosis: same Procedure & Clinicians Procedure: Hemiarthroplasty for left femoral neck fracture CPT code 97691 Same procedure as scheduled: Yes Indications: The patient is an 82-year-old male who sustained a left femoral neck fracture approximately 4 days ago. He 1st presented for care this morning. He was initially able to ambulate with a cane the last 2 days has been unable to walk progressively worsening pain when he was brought to the hospital by EMS. He is a history of hypertension, coronary artery disease status post bypass in 2017 and diabetes mellitus type 2 on metformin. He was indicated for partial hip replacement for his femoral neck fracture due to the displaced fracture and age of the fracture and associated risks of failure of fixation and nonunion. The hemiarthroplasty will allow immediate weight-bearing and avoid the risks of nonunion. The risks and benefits of the procedure have been discussed with the patient and given the opportunity to ask questions. The risks of surgery include but are not limited to infection, progressive arthritis, intraoperative fracture, leg length discrepancy, persistence of pain, damage to nerves and blood vessels, DVT, PE, coardiopulmonary complications and . The patient expressed a thorough understanding of the risks and benefits of surgery and has elected to proceed. Consent was signed. During the operation, the services of a physician assembler surgical garment were medically indicated and necessary to provide the exposure of the operative site for the surgical procedure and to maintain the limb in a proper position to carry out the operation safely and efficiently. Without a qualified fast food assistant restaurant manager being present this would extended the operative procedure and made the procedure technically more difficult to perform. Surgeon: Janki Singer Manager Cardiac: Camilla Rahman Anesthesia Type: General Operative Notes Findings: Displaced intracapsular hip fracture, left femoral neck Closure Type: primary Prosthetic devices, grafts, tissues, transplants, or devices: Dean and nephew Synergy cemented femoral stem cobalt chromium size 15 Medium canal plug 12 mm distal centralizer Tandem unipolar 0 taper sleeve neck Tandem unipolar 53 mm cobalt chromium head Estimated Blood Loss (mL): 200 Blood products transfused: none Tourniquet time (min): 0 Procedure in detail: Hemiarthroplasty for femoral neck fracture CPT code 69701. Patient was seen in the preoperative area the site of surgery was marked and informed consent confirmed. The patient was brought back to the operating room by the anesthesia team. Spinal anesthetic was placed by the anesthesia team. Patient was positioned supine on the operative table. General anesthetic was administered. Patient was then moved into the lateral position. The hip chief librarian circulation department positioner pads were then placed. A well-padded axillary roll was placed and the arms were appropriately positioned. The affected lower extremity was prepped and draped from the ankle to the iliac crest with ChloraPrep in the standard fashion sterile drapes were placed. Formal time-out procedure was performed confirming the patient's side and site of surgery, presence of informed consent, administration of appropriate preoperative antibiotics. Patient received tranexamic acid. Hip was approached through a standard posterior approach. Dissection was carried down through the skin and subcutaneous tissues sharply through the skin and then with the Bovie through the subcutaneous tissues. The fascia dominique was exposed and opened. Fascia was opened using the Bovie and the gluteus pato was spread with finger retraction. The Charnley retractor was placed. The inflamed bursa was resected. The piriformis was then identified. A Cobra retractor was placed under the gluteus medius to help expose the external rotators. Aquamantys was used to cauterize the vessel on the piriformis and the inferior capsule. The piriformis and short external rotators were tagged with a 2 Ethibond and divided of the trochanter. These were then retracted posteriorly to protect sciatic nerve. The femur was then flexed and internally rotated to present the femoral neck and the fracture. A corkscrew and a Uriarte were used to remove the femoral head from the acetabulum. This was measured to fit a 53 head. Next the femur was presented. A clean-up neck cut was made in a minimal fashion. The trial head size was trialed in the acetabulum. Attention was then turned to the femur. The canal was opened with a box cutting osteotome. This followed by the canal finer and a lateralizing Reamer. The tapered reamers were then used up to a size 14. Then broaching was sequentially done up to a size 14. Trial components were placed. The patient was stable in the position of sleep, squatting and could be put through a range of motion with 70? of internal rotation without dislocation. This was felt to be appropriate. An intraop a AP pelvis x-ray was obtained to assess component position. This was then a little varus so the components were removed additional curetting was done laterally and the canal was reamed and then broached up to a 15 and then a 15 broach placed with excellent stability. A standard neck 0 head and 53 head were placed and then a repeat intraoperative x-ray was taken with appropriate alignment of the components and sabianist of leg lengths. The hip was stable in the position of sleep and squatting and up to about 80? of internal rotation without dislocation. Final components were then selected. The final stem was a size 15. With a 12 mm distal centralizer. Femoral canal was prepared . The distal medium restrictor was placed approximately 2 cm distal to the end of the planned implant. The bone was meticulously cleaned with pulse lavage. Canal was then packed with gauze. Two packages of cement were mixed and carefully pressurized into the femoral canal. The femoral component was then placed without difficulty. This was held in place until the cement hardened. The repeat trial reduction showed good range of motion and stability. The final head and neck were then carefully placed. This was a tandem unipolar 0 mm sleeve and a 53 mm cobalt chromium tandem unipolar head. The wound was irrigated. Exparel mixture was injected for postoperative pain control. The capsule and muscular flap was repaired with the 2. FiberWire. Next the short external rotators were repaired to the greater trochanter through drill holes in the greater trochanter using the 2.5 drill and a HoEvaluAgenton suture Passer, #2FiberWire. These were tied with the leg in abduction. The wound was then irrigated again. The fascia dominique was closed with 0 Vicryl and the subcutaneous layer was closed with 2-0 Vicryl and the skin with rei. An Aquacel dressing was placed. An abduction pillow was placed for protection. The drapes removed and the patient was taken to the recovery room in good condition. There no immediate complications from this procedure. All counts were correct. Postoperative AP pelvis x-ray was obtained in the PACU showed appropriate alignment of the cemented hip hemiarthroplasty with no evidence of fracture. Complications: none Post-operative Condition: stable Disposition: PACU Plan for aftercare: Weightbear as tolerated. Posterior hip precautions. We will work with physical therapy. If mobilizing well then DVT prophylaxis can be 81 mg b.i.d. for 6 weeks. If slow to mobilize then would do 40 mg subcutaneous Lovenox x4 weeks. Will follow-up at [facility] in 2 weeks for staple removal with the physician fast food assistant restaurant manager then 6 weeks postop for follow-up with surgeon Dr. Singer for new x-rays
[2022-09-17] MEDS: fentaNYL 100 MCG/2 ML INJ IV ×2 (20:28→20:35)
[2022-09-17] MEDS: KETOROLAC 30 MG/ML VIAL 15 MG IV (20:44)
[2022-09-17] MEDS: HYDROMORPHONE 2 MG INJ 0.5 MG IV (20:55)
[2022-09-17] MEDS: HYDROMORPHONE 2 MG INJ (22:05)
[2022-09-17] MEDS: DOCUSATE 100 MG CAPSULE PO (22:40)
[2022-09-17] MEDS: SERTRALINE 50 MG TABLET PO (22:40)
[2022-09-17] MEDS: FINASTERIDE 5 MG TABLET PO (22:40)
[2022-09-17] MEDS: OXYCODONE IR 5 MG TABLET PO (22:51)
[2022-09-18] VITALS (7 sets, daily range): BP systolic 117–144; BP diastolic 44–51; PULSE 67–73; RESP 16–20; TEMP 36.1–36.4; O2SAT 94–96
[2022-09-18] MEDS: LACTATED RINGERS 1,000 ML 125 ML IV (00:13)
[2022-09-18] MEDS: IBUPROFEN 400 MG TABLET PO ×3 (00:18→12:32)
[2022-09-18] MEDS: ACETAMINOPHEN 325 MG TABLET 650 MG PO ×3 (00:18→12:32)
[2022-09-18] MEDS: CEFAZOLIN 2 GM/100 ML PREMIX 100 ML IV ×2 (01:31→08:44)
[2022-09-18] MEDS: OXYCODONE IR 5 MG TABLET PO ×3 (01:33→16:05)
[2022-09-18 04:42] LABS: Add Manual Diff / Slide Review NO; Basophils Absolute Auto 0 /uL (0-100); Basophils Percent Auto 0.3 % (0-2); Eosinophils Absolute Auto 0 /uL (0-450); Eosinophils Percent Auto 0.1 % (2-4); Hematocrit 26.2 % (41-53); Hemoglobin 8.4 g/dL (13.5-17.5); Lymphocytes Absolute Auto 2000 /uL (1100-4500); Lymphocytes Percent Auto 16.6 % (25-40); Mean Corpuscular HGB Conc 32.2 % (30-36); Mean Corpuscular Hemoglobin 29.2 PG (26-34); Mean Corpuscular Volume 90.8 fL (80-100); Monocytes Absolute Auto 1300 /uL (0-900); Monocytes Percent Auto 10.7 % (3-14); Neutrophils Absolute Auto 8600 /uL (1500-7000); Neutrophils Percent Auto 72.3 % (50-75); Platelet Count 251 X10^3/uL (150-400); Red Blood Cell Count 2.89 X10^6/uL (4.5-5.9); Red Cell Distribution Width 14.6 % (11.6-14.8); White Blood Cell Count 11.9 X10^3/uL (4.5-11.0)
[2022-09-18 04:43] LABS: BUN Creatinine Ratio 20.6 (6-22); Blood Urea Nitrogen 20 mg/dL (9-20); Calcium 8.8 mg/dL (8.4-10.2); Carbon Dioxide 26 mmol/L (22-32); Chloride 101 mmol/L (98-107); Estimated Glomerular Filt Rate > 60 mL/min (>60); Glucose 171 mg/dL (80-110); HEMOLYSIS < 15 (0-50); Magnesium 1.7 mg/dL (1.6-2.3); Potassium 4.3 mmol/L (3.4-5.1); Sodium 136 mmol/L (137-145)
--- NOTE | 2022-09-18 08:00 | P.PN_ITS ---
Subjective Subjective Date Patient Seen: 09/18/22 Time Patient Seen: 08:03 Interval history: Patient is complaining of mild left hip pain. His is bedside. He is not worked with physical therapy yet. He has chronic anemia. Denies any current dizziness or lightheadedness. He is not worked with physical therapy yet. Exam Vital Signs (past 8 hours): - 09/18/22 00:25 09/18/22 01:55 09/18/22 04:48 Temperature 97.0 F L 97.6 F Pulse Rate 67 71 Respiratory Rate 16 16 Blood Pressure 117/51 L 123/44 L Pulse Oximetry 94 96 95 Oxygen Delivery Method Oximask Oxygen Flow Rate 4 4 4 09/18/22 06:34 Temperature Pulse Rate Respiratory Rate Blood Pressure Pulse Oximetry 95 Oxygen Delivery Method Oximask Oxygen Flow Rate 4 Fraction of Inspired Oxygen 36 SaO2/FiO2 Ratio 272 Oxygen Delivery Method Oximask Oxygen Flow Rate 4 Narrative Exam Narrative: Pleasant 82-year-old male, resting comfortably in bed, no acute distress. Left hip dressing is clean, dry, intact. There is no surrounding erythema, induration, or carter pus. Bilateral lower extremity: Motor functions are grossly intact, sensation is grossly intact to light touch, calves are soft and nontender to palpation. Objective Labs Result Diagrams: 09/18/22 04:23 09/18/22 04:23 Labs: Laboratory Results - last 24 hr 09/18/22 09/18/22 04:23 04:23 WBC 11.9 H RBC 2.89 L Hgb 8.4 L Hct 26.2 L MCV 90.8 MCH 29.2 MCHC 32.2 RDW 14.6 Plt Count 251 Neut % (Auto) 72.3 Lymph % (Auto) 16.6 L Finney % (Auto) 10.7 Eos % (Auto) 0.1 L Baso % (Auto) 0.3 Neut # (Auto) 8600 H Lymph # (Auto) 2000 Finney # (Auto) 1300 H Eos # (Auto) 0 Baso # (Auto) 0 Sodium 136 L Potassium 4.3 Chloride 101 Carbon Dioxide 26 BUN 20 Creatinine 0.97 Estimated GFR > 60 BUN/Creatinine Ratio 20.6 Glucose 171 H Calcium 8.8 Magnesium 1.7 PFSH Medical History Anemia BPH w/o urinary obs/LUTS Cognitive impairment Depression (~2009) Diabetes Elevated PSA measurement Hematuria Hypercalcemia Hyperlipidemia Plantar warts Prediabetes (~2014) Proteinuria Tinnitus (~1995) Type 2 diabetes mellitus Surgical History Anesthesia S/P triple vessel bypass (~2016) Family History Mother No pertinent past medical history Father No pertinent past medical history Social History marital status: number of children: 1 household members: spouse occupational status: previously employed Smoking Status: Former smoker Tobacco: How many years used: 3 alcohol intake: current substance use type: does not use caffeine: Yes Assessment & Plan Post-op Postoperative Procedures: Procedures Operation Date: 09/17/22 16:15 Actual Procedure Side Surgeon p Hip Hemiarthroplasty Left Janki Singer MD Postoperative day: 1 Postoperative status: doing well Postoperative status narrative: -stable status post left hip hemiarthroplasty -acute on chronic anemia, asymptomatic Postoperative plan narrative: -mobilize with physical therapy. Maintain posterior hip precautions x6 weeks. Weightbearing as tolerated with front wheel walker or cane -continue with multimodal pain management -DVT prophylaxis: If mobilizing well then DVT prophylaxis can be 81 mg b.i.d. for 6 weeks. If slow to mobilize then would do 40 mg subcutaneous Lovenox x4 weeks. -PCP is monitoring anemia, informed of postoperative hemorrhagic anemia, mild and asymptomatic. -Will follow-up at [facility] in 2 weeks for staple removal with the physician ophthalmic medical assistant then 6 weeks postop for follow- up with surgeon Dr. Singer for new x-rays
[2022-09-18] MEDS: CHOLECALCIFEROL (VITAMIN D3) 1,000 UNIT TABLET 2000 UNIT PO (08:44)
[2022-09-18] MEDS: DOCUSATE 100 MG CAPSULE PO (08:44)
[2022-09-18] MEDS: CALCIUM CARBONATE 500 MG TAB PO (08:44)
[2022-09-18] MEDS: SERTRALINE 50 MG TABLET PO (08:44)
[2022-09-18] MEDS: FINASTERIDE 5 MG TABLET PO (08:45)
[2022-09-18] MEDS: MAGNESIUM CHLORIDE 64 MG TABLET 128 MG PO (09:00)
[2022-09-18] MEDS: ENOXAPARIN 40 MG/0.4 ML SYRINGE SUBCUT (09:03)
--- NOTE | 2022-09-18 09:10 | PT.IIE ---
Current Diagnoses Age-related osteoporosis with current pathological fracture, unspecified femur, initial encounter for fracture (09/16/22) Fracture of unspecified part of neck of unspecified femur, initial encounter for closed fracture (09/16/22) Surgery Performed Operation Date: 09/17/22 16:15 Actual Procedures p Hip Hemiarthroplasty(Left) - Janki Singer MD Surgical History (Last Reviewed 09/17/22 @ 17:42 by Michael Sanders DO) Anesthesia S/P triple vessel bypass (~2016) Medical History (Last Reviewed 09/17/22 @ 17:42 by Michael Sanders DO) Anemia BPH w/o urinary obs/LUTS Cognitive impairment Depression (~2009) Diabetes Elevated PSA measurement Hematuria Hypercalcemia Hyperlipidemia Plantar warts Prediabetes (~2014) Proteinuria Tinnitus (~1995) Type 2 diabetes mellitus Physical Therapy Inpatient Evaluation/Re-Eval M1 PT/OT-IP Prior Functional Status Start: 09/18/22 13:32 Freq: NEEDED Status: Active Protocol: Document 09/18/22 09:10 AB (Rec: 09/18/22 13:45 AB [id number]) Medical Review Prior Functional Status Medical History Reviewed Yes Communication able to make needs known Mobility and Gait pt stated that he is independent with all mobilities and ambulation without AD Social History Household Members spouse Living Arrangements House Number of Floors (Floors) One Floor Number of Stairs To Enter/Railing? 2 steps L rail ascending Home Environment High Toilet,Walk in Shower Home Equipment Straight Cane,Hand Held Shower ,Grab Bars In Shower Additional Social History Comment pt has an adjustable bed M2 PT-IP Current Condition Start: 09/18/22 13:32 Freq: NEEDED Status: Active Protocol: Document 09/18/22 09:10 AB (Rec: 09/18/22 13:45 AB [id number]) Physical Therapy Current Condition Current Condition Evaluation Date 09/18/22 Treatment Diagnosis L femoral neck fx s/p hemiarthroplasty; difficulty in walking Onset Date 09/16/22 M3 PT-IP Subjective Start: 09/18/22 13:32 Freq: NEEDED Status: Active Protocol: Document 09/18/22 09:10 AB (Rec: 09/18/22 13:45 AB [id number]) Subjective Physical Therapy Visit Type Type Initial Evaluation Visit Start Time 09:10 Visit Stop Time 10:49 Total Visit Minutes 99 Number of COMPUTER NETWORKING INSTRUCTOR Visits 0 Physical Therapy Visit Comments Patient Comments agreeable to do PT Therapy Pain Assessment Pain When Pain Assessed At Rest Pain Present Pain Present Pain Reported Location Left Hip Intensity 4 Scale Used Numeric (0 - 10) Pain Management Techniques Distraction,Modification of Treatment,Re-positioning, Timing of Activity with Medications M4 PT-IP Mobility and Gait Start: 09/18/22 13:32 Freq: NEEDED Status: Active Protocol: Document 09/18/22 09:10 AB (Rec: 09/18/22 13:45 AB [id number]) PT-Bed Mobility Assessment Supine to Sit Supine to Sit Standby Assistance,Maximum Assistance Sit to Supine Sit to Supine Standby Assistance PT-Transfer Assessment Sit to and From Stand Sit to and from Stand Contact Guard Assistance,1 Person Assistance,Use of Upper Extremities Equipment Transfer Assistive Device Gait Belt,Front Wheeled Walker Transfers Transfer Destination Chair Transfer Technique ambulated Transfer Ability Level of Assist Contact Guard Assistance,1 Person Assistance,Use of Upper Extremities Comments Mobility Comments pt supine in bed. spouse in room . educated pt and spouse on pt's posterior hip precautions. pt completed supine <> sit max A and max cues. educated spouse on how to assist pt with bed mobility . pt completed supine<> sit again but with SBA on 2nd repetition. educated spouse on how to use safety belt and how to assist pt. pt completed sit to stand and cued for hip precautions and ambulated using FWW to the chair ~ 15 ft with PT assisting and educated spouse on how to assist pt. pt completed sit to stand with spouse assisting and pt ambulated towards the stairs ~ 125 ft using fWW CGA. educated pt and spouse on how to do stair climbing. PT demonstrated to pt and spouse. pt completed up/down steps holding on to L rail with Dex singh CGA and spouse was able to assist and cue pt safely. pt ambulated back to his room using fWW CGA provided by spouse. pt sat back on chair. call light and table placed within reach. Pt needing a FWW for home use and opted to get FWW from [employer]. requested nurse of FWW order. dispensed pt with FWW and papers signed . Gait Assessment Gait Gait Assistance Required: Contact Guard Assist Distance (Feet) 125 Able to Maintain Weight Bearing Status Yes During Gait Assistive Devices Assistive Device Gait Belt,Front Wheeled Walker Orthotic/Prosthetic Devices or Brace: No Gait Deviations General Gait Pattern Antalgic,Decreased Stride Length,Decreased Feet Clearance,Step-to Gait Factors Limiting Gait Function Factors Limiting Gait Function Decreased Activity Tolerance, Decreased Strength,Limited Range of Motion,Pain,Poor Balance,Poor Safety Awareness Stair Climbing Assessment Evaluation Level of Assist On Stairs Contact Guard Assistance Devices Stair Climbing Assistive Devices Left Railing Technique/Endurance Stair Climbing Direction Ascend and Descend Stair Climbing Technique Step to Step Number of Steps Climbed 3 Query Text: Stair Climbing Set # Repetitions (reps) 1 PT-Balance Assessment Sitting Balance and Reactions Static Sitting Balance Ability Normal Dynamic Sitting Balance Ability Good Standing Balance and Reactions Static Standing Balance Ability Fair Dynamic Standing Balance Ability Fair Device Used FWW M5 PT-IP Objective Assessments Start: 09/18/22 13:32 Freq: NEEDED Status: Active Protocol: Document 09/18/22 09:10 AB (Rec: 09/18/22 13:45 AB [id number]) Orientation Orientation/Cognition Level of Alertness Alert Orientation Name,Place,Situation Language Function Ability No Deficits Noted Safety Awareness Decreased Safety Awareness Memory Description No Deficits Noted Gross Range of Motion Lower Extremity ROM Assessment Within Functional Limits Strength Lower Extremity Strength Assessment Left Impaired Hip 3+/5 Knee 4-/5 Sensation Assessment Sensation Gross Sensation WNL Muscle Tone Muscle Tone WNL Yes M6 PT-IP Treatment Start: 09/18/22 13:32 Freq: NEEDED Status: Active Protocol: Document 09/18/22 09:10 AB (Rec: 09/18/22 13:45 AB [id number]) Physical Therapy Treatment Education Education Provided Precautions,Weight Bearing Status,Post-Op Packet,Safety Equipment Issued Equipment Type and Company FWW dispensed to pt : [facility] PT-IP Assessment and Plan Start: 09/18/22 13:32 Freq: NEEDED Status: Active Protocol: Document 09/18/22 09:10 AB (Rec: 09/18/22 13:45 AB [id number]) PT Summary Assessment and Plan Potential Rehabilitation Potential Good Status of Condition at Evaluation Stable Summary Impairments Pain,ROM,Strength,Balance, Coordination,Sensation,Tone, Cognition,Bed Mobility, Transfers,Gait,Activity Tolerance Assessment Summary pt requiring CGA with mobility using FWW. caregiver education completed and spouse was able to safely assist pt. pt plans to go home. informed pt and spouse to set up outpt PT and understood. FWW dispensed to pt for home use as requested. Goals Bed Mobility Goal Independent Transfer Goal Independent,Front Wheeled Walker Gait Goal Independent,Front Wheel Walker Gait Distance 200 Other Goals up/down 2 steps L rail ascending mod I Days to Meet Goals 3 Frequency of Treatment Frequency Of Treatment Twice a Day Treatment Plan Physical Therapy Treatment Plan Bed Mobility Training,Transfer Training,Gait Training, Therapeutic Exercise,Balance Retraining,Post Op Education, Discharge Planning,Hot or Cold Pack,Neuromuscular Re-ed, Coordination Retraining,Manual Therapy Precautions Posterior Hip Precautions No Hip Flexion > 90 degrees,No Hip Internal Rotation,No Hip Adduction Weight Bearing Status Weight Bearing Status Weight Bear as Tolerated Allowed Weight Bearing Amount (enter % LLE WBAT or #) (%) Recommendations To Nursing Amount of Assist Needed 1 Person Assist Discharge Recommendations PT Discharge Recommendations Home with Assistance, Outpatient PT Transportation Needs at Discharge Private Vehicle
--- NOTE | 2022-09-18 14:18 | P.DS_ITS ---
History of Present Illness History of Present Illness Date Patient Seen: 09/17/22 Time Patient Seen: 15:07 Chief complaint: Left side and leg pain Narrative: Per admitting provider: This is an 82 year old male with PMH of cognitive impairment, anemia, DM, HLD, Depression, BPH, CAD w/ 3v CABG in 2017, prior paroxysmal atrial fibrillation (no recurrences per cardiology note) not on AC or antiplatelet therapy who presented after a mechanical fall 5 days ago complaining of worsening left hip pain and difficulty with ambulation. Patient states that he was attempting to help someone with carts in the local [employer] parking lot when he fell onto his left side. He denies dizziness, chest pain, palpitations prior to the fall. He has had worsening left hip pain since the fall, and came in today with difficulty ambulating. His pain is sharp, occasionally cramping with occasional radiation, and is severe with movement now. He denies numbeness, unilateral weakness, slurred speech. He did not hit his head. He also hit his left chest wall which is uncomfortable but generally improving. Imaging reveals a minimally displaced L femoral neck fracture. CXR shows no rib fractures.EKG with sinus rhythm without evidence of ischemia. He denies recent shortness of breath, dyspnea on exertion. Plan is for OR later this evening with orthopedic surgery. Admitted to medicine for further management. Patient was initially admitted to orthopedic surgery, transferred to medical service later in the day. Discharge Providers Provider Date of admission: 09/16/22 23:58 Discharge Date: 09/18/22 Primary care physician: Martin Felix DO Consults: 09/16/22 23:57 Consult to Orthopedic Surgery Urgent Comment: Consulting Provider: Jennie Montoya Reason for consultation: admission Has provider been notified: Yes 09/17/22 21:36 Consult to Discharge Planning Routine Comment: Consult to Physical Therapy Evaluate & Treat Comment: front wheeled walker Physician Instructions: post op SUKHDEV protocol 09/18/22 10:16 Consult to Physical Therapy Evaluate & Treat Comment: Physician Instructions: Evaluate and Treat Discharge provider: Omar Francois MD Summary Hospital Course Discharge Diagnosis: 1. Left femoral neck fracture 2. CAD s/p CABG 3. Paroxysmal aftrial fibrillation 4. Type 2 Dibaetes 5. Hyperlipidemia Hospital Course: He was admitted after a fall with a femoral neck fracture. He underwent surgical repair by orthopedic surgery and did well and was discharged home. He was referred to outpatient PT and will follow up with surgeon in 10-14 days. Exam Vital Signs (past 8 hours): Fraction of Inspired Oxygen 36 SaO2/FiO2 Ratio 272 Oxygen Delivery Method Room Air Oxygen Flow Rate 0 Narrative Exam Narrative: General:? Patient is well developed and well nourished, in no distress at this time. Chest:? Normal AP diameter and contour without kyphoscoliosis, no tachypnea, equal chest rise bilaterally. Lungs:? CTA b/l no wheezing rhonchi or rales. Cardio:?RRR no m/r/g. Abdomen: S NT ND. No CVA tenderness. Musculoskeletal:? Muscle strength and tone are equal within normal limits, no deformity. Extremities: No edema or joint effusions. No cyanosis or clubbing. Objective Labs Result Diagrams: 09/18/22 04:23 09/18/22 04:23 [facility] Medical History Anemia BPH w/o urinary obs/LUTS Cognitive impairment Depression (~2009) Diabetes Elevated PSA measurement Hematuria Hypercalcemia Hyperlipidemia Plantar warts Prediabetes (~2014) Proteinuria Tinnitus (~1995) Type 2 diabetes mellitus Surgical History Anesthesia S/P triple vessel bypass (~2016) Family History Mother No pertinent past medical history Father No pertinent past medical history Social History marital status: number of children: 1 household members: spouse occupational status: previously employed Smoking Status: Former smoker Tobacco: How many years used: 3 alcohol intake: current substance use type: does not use caffeine: Yes Discharge Plan Discharge Plan Patient Disposition: Home Provider Discharge Comment: Mr. Perez came in with a fracture. He had it repaired by surgery and was discharged home with outpatient physical therapy. Discharge orders & Medications Prescriptions: New polyethylene glycol 3350 17 gram Powder In Packet 17 g PO DAILY PRN (Reason: Constipation) Qty: 14 0RF oxycodone 5 mg Tablet 5 mg PO Q3HR PRN (Reason: Pain, Moderate (4-6)) Qty: 20 0RF aspirin 81 mg capsule 81 mg PO BID Qty: 84 0RF Continued finasteride 5 mg tablet See Rx Instructions .ROUTE .COMPLEX Qty: 90 0RF Dose Instruction: TAKE 1 TABLET BY MOUTH DAILY Rx Instructions: TAKE 1 TABLET BY MOUTH DAILY atorvastatin 20 mg tablet 20 mg PO BEDTIME Qty: 90 3RF donepezil 10 mg tablet 10 mg PO BEDTIME Qty: 90 3RF Rx Instructions: APPOINTMENT DUE. THANK YOU! metformin 500 mg tablet extended release 24 hr 500 mg PO BID Qty: 180 3RF sertraline 100 mg tablet See Rx Instructions .ROUTE .COMPLEX Qty: 180 1RF Dose Instruction: TAKE 1 TABLET BY MOUTH TWICE DAILY Rx Instructions: TAKE 1 TABLET BY MOUTH TWICE DAILY Follow up/Referrals: Janki Singer MD [Physician] - (Please call to schedule a follow-up appointment in 10-14 days postoperatively) Martin Felix DO [Primary Care Provider] - 2 Weeks Diet/Activity/Treatments Diet: Carb-consistent/Diabetic Other treatments: Dressing/Wound care: -Keep Aquacell dressing in place until postoperative follow-up office visit. -Okay to shower. Keep wound out of direct water stream. No soaking or submerging until all the scabs fall off (approximately 6 weeks). -No lotions, ointments, or scar creams directly to the incision until the wound is healed (4-6 weeks), -Please call the office if dressing becomes wet, soiled, or saturated. Activities: -Maintain posterior hip precautions x6 weeks. -Weight-bearing as tolerated. Use front wheeled walker, and progress to cane when safe. -Continue with home exercises as directed by your physical therapist. -Elevate ?toes above the nose if you have significant swelling in your lower leg. (A wedge pillow is easiest.) -Ice your incision as needed for pain/inflammation/swelling. Protect your skin with a folded pillowcase. Follow-up: -Follow-up with your surgeon or PA in the office in 10-14 days after surgery. -Follow-up with your surgeon 6 weeks postoperatively. Call the office if you have chest pain, shortness of breath, significant swelling that will not resolve with elevating, fever over 101?, significantly worsening pain, or are concerned you might need to go to the Emergency Room. [facility]: [phone] Skin/Wound/Dressing Care Report to your healthcare provider any signs of infection, such as:: chills, fever, night sweats, unusual drainage and unusual redness Visit Report/Discharge Packet Instructions: DI for Hip Replacement Stand Alone Forms: Surgery Discharge Discharge Data Primary Care Provider: Martin Felix
--- NOTE | 2022-09-18 16:27 | CM.DPNOTE ---
Initial DCP Assessment Note Pt is an 82 yo male, resident of [place], now POD#1 from p Hip Hemiarthroplasty Left Janki Singer MD PCP: Martin Felix Payer: BESS Palomo Reviewed chart, met w/patient and spouse to introduce self. Patient eager to return home and spouse confident in her ability to care for patient once home with their family to assist Patient cleared from therapy for this plan. Dr Francois discharging patient this afternoon, home w/spouse and family to assist No barriers identified at this time to patient's safe discharge home w/family to assist; close outpatient f/u recommended. JOE Rodriguez
--- NOTE | 2022-09-18 17:35 | PC.NURSE ---
Pt is A&Ox3, he denies numbness and tingling to RLE, +CMS. At rest he reports L hip pain 2/10, aqaucel dressing c/d/i, VSS, afebrile on RA. He is able to participate with PT this a.m. and is dispensed a FWW. He is cleared from PT standpoint for safe discharge home with . His verde catheter is discontinued at approximately noon and and he voids without difficulty about 2 hours afterwards. and patient are hopeful to discharge home this afternoon.Hospitalist at bedside clearing patient for discharge home this afternoon. Both and patient verbalize understanding of medications, hip precautions, activity, site care, s/sx of infection/complication, and follow up appointments. He is escorted out of hospital in a w/ch with his belongings as well as FWW and prescription for discharge home in private vehicle with his .
== END 2022-09-18 16:10 | disposition home or self-care (01) | DRG 522 ==
LOC: ED 23:35 → AC 23:58
PROVIDERS: Orthopaedic Surgery Foot and Ankle Surgery; Admitting Provider Internal Medicine; Emergency Provider Emergency Medicine; PCP Family Medicine; Referring Provider Emergency Medicine; Visit Provider Internal Medicine
PROC: 0SRS0JZ Replacement of Left Hip Joint, Femoral Surface with Synthetic Substitute, Open Approach (ICD-10-PCS; CPT 27125; principal; 2022-09-17 16:15)
DX: M80.052A Age-related osteoporosis with current pathological fracture, left femur, initial encounter for fracture (principal); I25.10 Atherosclerotic heart disease of native coronary artery without angina pectoris; E11.9 Type 2 diabetes mellitus without complications; E78.5 Hyperlipidemia, unspecified; F32.A Depression, unspecified; N40.0 Benign prostatic hyperplasia without lower urinary tract symptoms; Z20.822 Contact with and (suspected) exposure to COVID-19; Z95.1 Presence of aortocoronary bypass graft; Z87.891 Personal history of nicotine dependence; Z79.84 Long term (current) use of oral hypoglycemic drugs
CPT/HCPCS: 36415; 71101; 72170; 73501; 73502; 80048; 82962; 83735; 85025; 87635; 93005; 94760; 96374; 97161; 97530; 99284; C1776; C9803; C9290; J0171; J0690; J1170; J1650; J1885; J2250; J2405; J2704; J3010

== ENCOUNTER → 2023-02-15 06:38 | Outpatient (CLI) | payer MEDICARE, SELFPAY ==
[2022-09-17 15:00] VITALS: BMI 28.7
[2023-02-15 08:33] LABS: Add Manual Diff / Slide Review NO; Basophils Absolute Auto 100 /uL (0-100); Basophils Percent Auto 0.8 % (0-2); Eosinophils Absolute Auto 100 /uL (0-450); Eosinophils Percent Auto 1.4 % (2-4); Hematocrit 34.5 % (41-53); Hemoglobin 11.4 g/dL (13.5-17.5); Lymphocytes Absolute Auto 1600 /uL (1100-4500); Lymphocytes Percent Auto 18.2 % (25-40); Mean Corpuscular HGB Conc 33.1 % (30-36); Mean Corpuscular Hemoglobin 29.4 PG (26-34); Mean Corpuscular Volume 88.9 fL (80-100); Monocytes Absolute Auto 1100 /uL (0-900); Monocytes Percent Auto 12.6 % (3-14); Neutrophils Absolute Auto 5800 /uL (1500-7000); Platelet Count 328 X10^3/uL (150-400); Red Blood Cell Count 3.88 X10^6/uL (4.5-5.9); Red Cell Distribution Width 15.2 % (11.6-14.8); White Blood Cell Count 8.6 X10^3/uL (4.5-11.0)
[2023-02-15 08:48] LABS: Alanine Aminotransferase 20 IU/L (<50); Albumin 4.1 g/dL (3.5-5.0); Albumin Globulin Ratio 1.4 (1.0-2.8); Alkaline Phosphatase 161 U/L (38-126); Aspartate Aminotransferase 22 IU/L (17-59); BUN Creatinine Ratio 17.8 (6-22); Bilirubin Total 0.8 mg/dL (0.2-1.3); Blood Urea Nitrogen 18 mg/dL (9-20); Calcium 9.9 mg/dL (8.4-10.2); Carbon Dioxide 28 mmol/L (22-32); Chloride 103 mmol/L (98-107); Estimated Glomerular Filt Rate > 60 mL/min (>60); Glucose 156 mg/dL (80-110); Potassium 4.3 mmol/L (3.4-5.1); Sodium 139 mmol/L (137-145); Total Protein 7.1 g/dL (6.3-8.2)
[2023-02-15 08:50] LABS: HEMOLYSIS 25 (0-50); HEMOLYSIS < 15 (0-50); Iron 62 ug/dL (49-181)
[2023-02-15 09:01] LABS: Percent Iron Saturation 20 % (20-50); Total Iron Binding Capacity 316 ug/dL (261-462); Transferrin 240 mg/dL (206-381)
[2023-02-15 09:36] LABS: Vitamin B12 994 pg/mL (239-931)
[2023-02-15 09:37] LABS: Creatinine Urine Random 150.2 mg/dL
[2023-02-16 03:10] LABS: x Labcorp Estim. Avg Glu (eAG) 180 mg/dL (.); x Labcorp Hemoglobin A1c 7.9 % (4.8-5.6)
== END ==
PROVIDERS: PCP Family Medicine; Referring Provider Family Medicine; Visit Provider Family Medicine
DX: D64.9 Anemia, unspecified (principal); E11.9 Type 2 diabetes mellitus without complications; E78.2 Mixed hyperlipidemia; N40.0 Benign prostatic hyperplasia without lower urinary tract symptoms; R41.89 Other symptoms and signs involving cognitive functions and awareness
CPT/HCPCS: 36415; 80053; 82043; 82570; 82607; 83036; 83540; 83550; 85025

== ENCOUNTER → 2023-03-04 07:55 | Outpatient (CLI) | payer MEDICARE, SELFPAY ==
[2022-09-17 15:00] VITALS: BMI 28.7
--- NOTE | 2023-03-04 07:56 | DI.RAD.S_ITS ---
PROCEDURE: FL UPPER GI SMALL BOWEL INDICATIONS: Intermittent postprandial emesis, subjective stricture sympt COMPARISON: [facility], CT, CT ABDOMEN PELVIS WO/W CON, 01/21/2021, 13:10. [facility] [place], CR, XR PELVIS WITH LATERAL HIP LEFT, 11/06/2022, 13:49. FINDINGS: KUB: Preprocedural car inspector film shows a normal bowel gas pattern. No suspicious abdominal calcifications. Visualized solid organ contours appear normal in size. No suspicious bony abnormalities. Sternotomy. Left hip arthroplasty. Esophagus: Air-contrast views demonstrate a normal mucosal pattern. On single-contrast views, there is moderate esophageal dysmotility with disorganized peristalsis. No fixed strictures, extrinsic mass effects, or diverticula. There is a small sliding hiatal hernia. Severe gastroesophageal reflux was elicited joint exam. There is normal transit of a calibrated barium tablet through the esophagus. Stomach: The gastric lumen is normally distensible, and has normal rugal fold thickness. No mucosal masses or ulcers. The pylorus and duodenal bulb have a normal morphology. Small bowel: Possible small duodenal diverticulum in the proximal duodenum, which is not consistently seen. Duodenal folds appear normal in thickness. There is normal transit time of barium through the small intestine. Small bowel loops appear normal in caliber throughout. Jejunal and ileal folds are smooth and normal in thickness. No strictures, intraluminal masses, or extrinsic mass effects. The terminal ileum is identified and appears normal. IMPRESSION: 1. Moderate esophageal dysmotility. 2. Small hiatal hernia. 3. Severe gastroesophageal reflux. 4. Question small duodenal diverticulum versus a an artifact. 5. Normal small-bowel follow-through. Dictated by: Marimar Hardin M.D. on 03/04/2023 at 11:13 Approved by: Marimar Hardin M.D. on 03/04/2023 at 11:19
== END ==
PROVIDERS: PCP Family Medicine; Referring Provider Family Medicine; Visit Provider Family Medicine
DX: K22.4 Dyskinesia of esophagus (principal); K44.9 Diaphragmatic hernia without obstruction or gangrene; K21.9 Gastro-esophageal reflux disease without esophagitis; R11.10 Vomiting, unspecified
CPT/HCPCS: 74240; 74248

== ENCOUNTER → 2023-10-11 07:12 | Outpatient (CLI) | payer OTHER, SELFPAY ==
[2022-09-17 15:00] VITALS: BMI 28.7
[2023-10-11 07:44] LABS: Add Manual Diff / Slide Review NO; Basophils Absolute Auto 100 /uL (0-100); Basophils Percent Auto 0.8 % (0-2); Eosinophils Absolute Auto 100 /uL (0-450); Hematocrit 35.1 % (41-53); Hemoglobin 11.7 g/dL (13.5-17.5); Lymphocytes Absolute Auto 1700 /uL (1100-4500); Lymphocytes Percent Auto 18.8 % (25-40); Mean Corpuscular HGB Conc 33.4 % (30-36); Mean Corpuscular Hemoglobin 30.4 PG (26-34); Mean Corpuscular Volume 91.1 fL (80-100); Monocytes Absolute Auto 1000 /uL (0-900); Neutrophils Absolute Auto 6300 /uL (1500-7000); Neutrophils Percent Auto 68.4 % (50-75); Platelet Count 323 X10^3/uL (150-400); Red Blood Cell Count 3.85 X10^6/uL (4.5-5.9); Red Cell Distribution Width 14.1 % (11.6-14.8); White Blood Cell Count 9.2 X10^3/uL (4.5-11.0)
[2023-10-11 07:52] LABS: Hemoglobin A1C% w Est Avg Glu 7.2 % (4.0-6.0)
[2023-10-11 08:42] LABS: HEMOLYSIS < 15 (0-50); Iron 44 ug/dL (49-181)
[2023-10-11 08:46] LABS: Alanine Aminotransferase 19 IU/L (<50); Albumin 4.2 g/dL (3.5-5.0); Albumin Globulin Ratio 1.2 (1.0-2.8); Alkaline Phosphatase 131 U/L (38-126); Aspartate Aminotransferase 25 IU/L (17-59); BUN Creatinine Ratio 22.6 (6-22); Bilirubin Total 0.6 mg/dL (0.2-1.3); Blood Urea Nitrogen 24 mg/dL (9-20); Calcium 10.8 mg/dL (8.4-10.2); Carbon Dioxide 26 mmol/L (22-32); Chloride 104 mmol/L (98-107); Estimated Glomerular Filt Rate > 60 mL/min (>60); Globulin 3.4 g/dL (1.7-4.1); Glucose 141 mg/dL (80-110); HEMOLYSIS < 15 (0-50); Potassium 4.5 mmol/L (3.4-5.1); Sodium 139 mmol/L (137-145); Total Protein 7.6 g/dL (6.3-8.2)
[2023-10-11 08:54] LABS: Percent Iron Saturation 15 % (20-50); Total Iron Binding Capacity 289 ug/dL (261-462); Transferrin 240 mg/dL (206-381)
[2023-10-11 09:33] LABS: Vitamin B12 933 pg/mL (239-931)
== END ==
PROVIDERS: PCP Family Medicine; Referring Provider Family Medicine; Visit Provider Family Medicine
DX: R11.10 Vomiting, unspecified (principal); E11.9 Type 2 diabetes mellitus without complications; D64.9 Anemia, unspecified
CPT/HCPCS: 36415; 80053; 82607; 83036; 83540; 83550; 85025

== ENCOUNTER → 2023-11-18 13:36 | Outpatient (CLI) | payer MEDICARE, SELFPAY ==
[2022-09-17 15:00] VITALS: BMI 28.7
--- NOTE | 2023-11-18 13:40 | DI.RAD.S_ITS ---
PROCEDURE: XR KUB INDICATIONS: chronic diarrhea TECHNIQUE: One view of the abdomen acquired. COMPARISON: None. FINDINGS: Surgical changes and devices: Left hip arthroplasty. Bowel: Bowel gas pattern is normal. Paucity of small bowel gas. Soft tissues: No suspicious abdominal calcifications. Visualized solid organ contours appear normal in size. Bones: No suspicious bony lesions. IMPRESSION: No acute abnormality. Dictated by: Milton Flood M.D. on 11/18/2023 at 16:16 Approved by: Milton Flood M.D. on 11/18/2023 at 16:16
[2023-11-18 14:16] LABS: Add Manual Diff / Slide Review NO; Basophils Absolute Auto 100 /uL (0-100); Basophils Percent Auto 0.8 % (0-2); Eosinophils Absolute Auto 0 /uL (0-450); Eosinophils Percent Auto 0.4 % (2-4); Hematocrit 33.9 % (41-53); Hemoglobin 11.4 g/dL (13.5-17.5); Lymphocytes Absolute Auto 1700 /uL (1100-4500); Lymphocytes Percent Auto 19.3 % (25-40); Mean Corpuscular HGB Conc 33.5 % (30-36); Mean Corpuscular Hemoglobin 30.4 PG (26-34); Monocytes Absolute Auto 900 /uL (0-900); Monocytes Percent Auto 9.8 % (3-14); Neutrophils Absolute Auto 6100 /uL (1500-7000); Neutrophils Percent Auto 69.7 % (50-75); Platelet Count 350 X10^3/uL (150-400); Red Blood Cell Count 3.73 X10^6/uL (4.5-5.9); Red Cell Distribution Width 14.2 % (11.6-14.8); White Blood Cell Count 8.8 X10^3/uL (4.5-11.0)
[2023-11-18 14:48] LABS: HEMOLYSIS < 15 (0-50); Iron 78 ug/dL (49-181)
[2023-11-18 14:53] LABS: Alanine Aminotransferase 22 IU/L (<50); Albumin 4.4 g/dL (3.5-5.0); Albumin Globulin Ratio 1.3 (1.0-2.8); Alkaline Phosphatase 126 U/L (38-126); Aspartate Aminotransferase 28 IU/L (17-59); BUN Creatinine Ratio 19.4 (6-22); Bilirubin Total 0.8 mg/dL (0.2-1.3); Blood Urea Nitrogen 21 mg/dL (9-20); Calcium 10.7 mg/dL (8.4-10.2); Carbon Dioxide 25 mmol/L (22-32); Chloride 106 mmol/L (98-107); Estimated Glomerular Filt Rate > 60 mL/min (>60); Gamma Glutamyl Transpeptidase 24 U/L (15-73); Globulin 3.4 g/dL (1.7-4.1); Glucose 135 mg/dL (80-110); HEMOLYSIS < 15 (0-50); Potassium 4.4 mmol/L (3.4-5.1); Sodium 142 mmol/L (137-145); Total Protein 7.8 g/dL (6.3-8.2)
[2023-11-18 14:59] LABS: Percent Iron Saturation 27 % (20-50); Total Iron Binding Capacity 291 ug/dL (261-462); Transferrin 224 mg/dL (206-381)
[2023-11-18 15:26] LABS: Ferritin 57 ng/mL (18-464)
== END ==
PROVIDERS: PCP Family Medicine; Referring Provider Physician Assistant; Visit Provider Physician Assistant
DX: K52.9 Noninfective gastroenteritis and colitis, unspecified (principal); E78.5 Hyperlipidemia, unspecified; D64.9 Anemia, unspecified
CPT/HCPCS: 36415; 74018; 80053; 82728; 82977; 83540; 83550; 85025

== ENCOUNTER → 2023-11-19 09:43 | Outpatient (CLI) | payer OTHER, SELFPAY ==
[2022-09-17 15:00] VITALS: BMI 28.7
[2023-11-19 14:51] LABS: Adenovirus F 40/41 Not Detected (Not Detect); Astrovirus Not Detected (Not Detect); Clostridium difficile toxin AB Not Detected (Not Detect); Cryptosporidium Not Detected (Not Detect); Cyclospora cayetanensis Not Detected (Not Detect); Entamoeba histolytica Not Detected (Not Detect); Enteroaggregative E.coli Not Detected (Not Detect); Enteropathogenic E.coli Not Detected (Not Detect); Enterotoxigenic E.coli It/st Not Detected (Not Detect); Giardia lamblia Not Detected (Not Detect); Norovirus GI/GII Not Detected (Not Detect); Plesiomonsa shigelloides Not Detected (Not Detect); Rotavirus A Not Detected (Not Detect); Salmonella Not Detected (Not Detect); Shiga-like toxin-prod E.coli Not Detected (Not Detect); Shigella/Enteroinvasive E.coli Not Detected (Not Detect); Vibrio Not Detected (Not Detect); Vibrio cholerae Not Detected (Not Detect); Yersinia enterocolitica Detected (Not Detect)
[2023-11-19 14:57] LABS: Campylobacter Not Detected (Not Detect)
[2023-11-19 14:58] LABS: Sapovirus Not Detected (Not Detect)
== END ==
PROVIDERS: PCP Family Medicine; Referring Provider Physician Assistant; Visit Provider Physician Assistant
DX: K52.9 Noninfective gastroenteritis and colitis, unspecified (principal); E11.9 Type 2 diabetes mellitus without complications
CPT/HCPCS: 87507

== ENCOUNTER → 2024-01-03 06:46 | Outpatient (CLI) | payer MEDICARE, SELFPAY ==
[2022-09-17 15:00] VITALS: BMI 28.7
--- NOTE | 2024-01-03 06:48 | DI.ECHO.S_ITS ---
[facility] +---------+ : : [address] : [place] : : : : [id number] : : : : Phone: [phone]---------+ Echocardiogram Report + + :Name: BURT MONTANO Study Date: 01/03/2024 Height: 70 in : :[facility] ReadingLocation: Weight: 199 lb : : Gender: Male BSA: 2.1 m2 : :: 1940 Age: 83 yrs BP: 129/71 mmHg: :Reason For Study: HYPERTENSION : :Ordering Physician: ANAMIKA, : :LYNN Glover Performed By: Megan Nagy : :Referring: LYNN WILLSON : + + Interpretation Summary The left ventricle is normal in size. The left ventricular ejection fraction is normal. The ejection fraction is estimated to be 60-65%. The right ventricle is mildly dilated. Right ventricular systolic function is borderline reduced. No significant change from the previous study. . The aortic valve is mildly calcified. There is mild to moderately reduced leaflet mobility. The peak aortic velocity is 2.7 m/sec. The aortic valve mean gradient is 16 mmHg. sev ratio: 0.44 The peak aortic velocity on the previous exam was 2.2 m/sec. There is no hemodynamically significant valvular aortic stenosis. There is mild tricuspid regurgitation. The right ventricular systolic pressure is estimated to be at least 27 mmHg based on an estimated right atrial pressure of 3 mm Hg. Mild atherosclerotic plaque(s) in the aortic arch. Procedure: A two-dimensional transthoracic echocardiogram with color flow and Doppler was performed. The study quality was technically adequate. Comparison is made with the echocardiogram of 01/13/2021. The patient was in sinus rhythm with heart rates between 64-73 bpm during the exam. Left Ventricle: The left ventricle is normal in size. Mild proximal septal thickness. There is no echo evidence for significant left ventricular outflow tract obstruction. There is no thrombus. The ejection fraction is estimated to be 60-65%. The left ventricular ejection fraction is normal. Septal motion is consistent with conduction abnormality. Diastolic parameters suggest a relaxation abnormality of the left ventricle, consistent with probable normal filling pressures. Right Ventricle: The right ventricle is mildly dilated. There has been no significant change since the previous study. Right ventricular systolic function is borderline reduced. There has been no significant change since the previous study. Atria: The left atrial size is normal. The left atrium has mildly decreased in size since the prior echo exam. Right atrial size is normal. There is no Doppler evidence for an interatrial shunt. Mitral Valve: There is mild to moderate mitral annular calcification. No significant mitral valve stenosis. There is trace mitral regurgitation. Aortic Valve: The aortic valve is mildly calcified. There is mild to moderately reduced leaflet mobility. The peak aortic velocity is 2.7 m/sec. The aortic valve mean gradient is 16 mmHg. The calculated aortic valve area is 1.5 cm2. The peak aortic velocity on the previous exam was 2.2 m/sec. There is no hemodynamically significant valvular aortic stenosis. No aortic regurgitation is present. Tricuspid Valve: The tricuspid valve is normal in structure and function. There is mild tricuspid regurgitation. The right ventricular systolic pressure is estimated to be at least 27 mmHg based on an estimated right atrial pressure of 3 mm Hg. Pulmonic Valve: The pulmonic valve leaflets are thin and pliable; valve motion is normal. There is mild pulmonic regurgitation. Great Vessels: The aortic root is normal size. The ascending aorta could not be visualized. Mild atherosclerotic plaque(s) in the aortic arch. The IVC is of normal diameter and collapses greater than 50% with a sniff. This suggests a low right atrial pressure of 3 mm Hg. Pericardium/ Pleura There is no pericardial effusion. There is no pleural effusion. MMode/2D Measurements & Calculations LVIDd: 4.7 cm LVOT diam: 2.2 cm LVIDs: 3.2 cm Ao root diam: 3.3 cm FS: 32.1 % Ao Arch Diam (Prox Trans): 3.0 cm EPSS: 0.31 cm IVSd: 1.1 cm LVPWd: 0.93 cm LV gallardo. diameter/BSA (cm/m^2): 2.3 LV sys. diameter/BSA (cm/m^2): 1.5 LA A2 area: 19.7 cm2 RA long axis: 5.7 cm LA A4 area: 19.3 cm2 RA area: 15.0 cm2 LA length (vol): 5.6 cm RA vol: 33.3 ml LA vol: 57.2 ml RA : 16.0 ml/m2 LA vol index: 27.5 ml/m2 IVC diam: 1.7 cm TAPSE: 1.6 cm Doppler Measurements & Calculations Ao V2 max: 269.3 cm/sec LVOT Max Phillip: 112.3 cm/sec Ao V2 mean: 178.0 cm/sec LV V1 max P.0 mmHg Ao max P.0 mmHg LV V1 VTI: 26.3 cm Ao mean P.9 mmHg NATASHA(I,D): 1.6 cm2 Ao V2 VTI: 59.4 cm NATASHA(V,D): 1.5 cm2 sev ratio: 0.44 NATASHA indexed to BSA (cm^2/m^2): 0.78 MV E max phillip: 71.0 cm/sec TR max phillip: 247.2 cm/sec MV A max phillip: 110.0 cm/sec TR max P.4 mmHg MV E/A: 0.65 PA V2 max: 110.6 cm/sec Med Peak E' Phillip: 5.4 cm/sec PA V2 mean: 83.6 cm/sec E/E' med: 13.1 PA mean P.0 mmHg Lat Peak E' Phillip: 8.7 cm/sec PA pr(Accel): 49.9 mmHg E/E' lat: 8.2 E/e' average: 10.6 MV dec time: 0.25 sec SV(LVOT): 96.1 ml Reading Physician:11:[id number] AM
== END ==
LOC: ECHO 06:47
PROVIDERS: PCP Family Medicine; Referring Provider Nurse Practitioner; Visit Provider Nurse Practitioner
DX: I10 Essential (primary) hypertension (principal); Z86.79 Personal history of other diseases of the circulatory system; I08.1 Rheumatic disorders of both mitral and tricuspid valves
CPT/HCPCS: 93306

== ENCOUNTER → 2024-04-11 09:39 | Outpatient (CLI) | payer MEDICARE, SELFPAY ==
[2022-09-17 15:00] VITALS: BMI 28.7
[2024-04-11 10:20] LABS: Add Manual Diff / Slide Review NO; Basophils Absolute Auto 100 /uL (0-100); Basophils Percent Auto 0.8 % (0-2); Eosinophils Absolute Auto 100 /uL (0-450); Eosinophils Percent Auto 0.9 % (2-4); Hematocrit 35.5 % (41-53); Hemoglobin 11.9 g/dL (13.5-17.5); Lymphocytes Absolute Auto 2000 /uL (1100-4500); Lymphocytes Percent Auto 24.6 % (25-40); Mean Corpuscular HGB Conc 33.6 % (30-36); Mean Corpuscular Hemoglobin 30.9 PG (26-34); Mean Corpuscular Volume 91.8 fL (80-100); Monocytes Absolute Auto 700 /uL (0-900); Neutrophils Absolute Auto 5400 /uL (1500-7000); Neutrophils Percent Auto 64.7 % (50-75); Platelet Count 342 X10^3/uL (150-400); Red Blood Cell Count 3.87 X10^6/uL (4.5-5.9); Red Cell Distribution Width 14.8 % (11.6-14.8); White Blood Cell Count 8.3 X10^3/uL (4.5-11.0)
[2024-04-11 11:33] LABS: Hemoglobin A1C% w Est Avg Glu 7.1 % (4.0-6.0)
[2024-04-11 11:46] LABS: Alanine Aminotransferase 23 IU/L (<50); Albumin 4.3 g/dL (3.5-5.0); Albumin Globulin Ratio 1.2 (1.0-2.8); Alkaline Phosphatase 170 U/L (38-126); Aspartate Aminotransferase 27 IU/L (17-59); BUN Creatinine Ratio 16.5 (6-22); Bilirubin Total 0.6 mg/dL (0.2-1.3); Blood Urea Nitrogen 23 mg/dL (9-20); Carbon Dioxide 25 mmol/L (22-32); Chloride 107 mmol/L (98-107); Estimated Glomerular Filt Rate 50 mL/min (>60); Globulin 3.5 g/dL (1.7-4.1); Glucose 161 mg/dL (80-110); HEMOLYSIS < 15 (0-50); Potassium 4.9 mmol/L (3.4-5.1); Sodium 142 mmol/L (137-145); Total Protein 7.8 g/dL (6.3-8.2)
[2024-04-11 12:08] LABS: Prostate Specific Antigen Scrn 2.24 ng/mL (0.1-4.0)
== END ==
PROVIDERS: PCP Family Medicine; Referring Provider Family Medicine; Visit Provider Family Medicine
DX: E78.5 Hyperlipidemia, unspecified (principal); E11.9 Type 2 diabetes mellitus without complications; Z12.5 Encounter for screening for malignant neoplasm of prostate; D64.9 Anemia, unspecified; N40.0 Benign prostatic hyperplasia without lower urinary tract symptoms
CPT/HCPCS: 36415; 80053; 83036; 85025; G0103

== ENCOUNTER → 2024-08-01 | Outpatient (CLI) | payer MEDICARE, SELFPAY ==
[2022-09-17 15:00] VITALS: BMI 28.7
--- NOTE | 2024-08-02 18:10 | DI.NM.S_ITS ---
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 Exercise perfusion study is being done for CAD risk stratification. RADIOPHARMACEUTICAL: 25.2 millicurie technetium-99m Myoview IV was injected at stress and 26.8 millicurie technetium-99m Myoview was injected at rest. CARDIAC STRESS: The patient underwent exercise perfusion study under the supervision of an attending staff as per standard protocol. The patient walked on Yash protocol for 5 minutes and 10 seconds, achieved maximum heart rate of 156, which was 116% of target heart rate. Resting blood pressure 130/68 and peak blood pressure 182/80 mmHg. Baseline rhythm sinus with repolarization changes. During stress, patient has 2- 3 mm downsloping as well as horizontal ST depression in inferior leads and leads V3 to V6 which got improved to the baseline in 3 minutes in recovery. Occasional PACs and PVCs. No chest pain or anginal symptoms. The patient felt fatigue. 7 METs of workload. LARISSA -24%. RAW DATA: There is an increased subdiaphragmatic activity. GATED STUDY: Resting LV ejection fraction 71% and stress LV ejection fraction 74% without any significant wall motion abnormalities. Resting end-diastolic volume 126 mL. TID ratio 0.90, which is within normal limits. MYOCARDIAL PERFUSION: Stress supine, resting supine, and stress prone images were compared to each other. Stress and resting supine images revealed small size, mildly decreased perfusion of distal inferior wall extending into the inferior apex which got significantly improved during stress prone images suggestive of tissue attenuation artifact. Stress prone images revealed small size, mildly decreased perfusion of mid anterior wall which was not seen during stress supine images. No significant reversible ischemia. Summed stress score 0 and summed rest score 2. CONCLUSION: I will call this study likely a normal myocardial perfusion study with evidence of diaphragmatic tissue attenuation artifact which got resolved during stress prone images. Summed stress score is 0. Preserved LV function without any significant wall motion abnormality. The patient is 84 years old. LARISSA -24% with good exercise capacity. The patient has ischemic EKG changes during stress test, however, on perfusion scan, I do not see any obvious significant ischemia. Hence overall low-risk myocardial perfusion scan.Correlate clinically. Chinedu Perez - GEMMA/germaine/HANS doc#: [id number]/job#: [id number] dd: 08/02/2024 17:02:00 dt: 08/02/2024 17:54:00 DICTATING MD/COPIES TO: Ahmet Carrillo MD COPIES MNE: AIMEE;
== END ==
LOC: NUCM 12:58
PROVIDERS: PCP Family Medicine; Referring Provider Internal Medicine Cardiovascular Disease; Visit Provider Internal Medicine Cardiovascular Disease
DX: I25.10 Atherosclerotic heart disease of native coronary artery without angina pectoris (principal); Z95.1 Presence of aortocoronary bypass graft
CPT/HCPCS: 78452; 93017; A9502

== ENCOUNTER → 2024-08-02 07:07 | Outpatient (CLI) | payer MEDICARE, SELFPAY ==
[2022-09-17 15:00] VITALS: BMI 28.7
[2024-08-02 10:25] LABS: Hemoglobin A1C% w Est Avg Glu 7.4 % (4.0-6.0)
[2024-08-02 10:42] LABS: Alanine Aminotransferase 23 IU/L (<50); Albumin 4.2 g/dL (3.5-5.0); Albumin Globulin Ratio 1.4 (1.0-2.8); Alkaline Phosphatase 148 U/L (38-126); Aspartate Aminotransferase 26 IU/L (17-59); BUN Creatinine Ratio 19.4 (6-22); Bilirubin Total 0.6 mg/dL (0.2-1.3); Blood Urea Nitrogen 28 mg/dL (9-20); Calcium 10.7 mg/dL (8.4-10.2); Carbon Dioxide 27 mmol/L (22-32); Chloride 107 mmol/L (98-107); Estimated Glomerular Filt Rate 47 mL/min (>60); Globulin 2.9 g/dL (1.7-4.1); Glucose 168 mg/dL (80-110); HEMOLYSIS < 15 (0-50); Potassium 4.9 mmol/L (3.4-5.1); Sodium 141 mmol/L (137-145); Total Protein 7.1 g/dL (6.3-8.2)
== END ==
PROVIDERS: PCP Family Medicine; Referring Provider Internal Medicine Cardiovascular Disease; Visit Provider Family Medicine
DX: E11.9 Type 2 diabetes mellitus without complications (principal); E78.5 Hyperlipidemia, unspecified; N40.0 Benign prostatic hyperplasia without lower urinary tract symptoms
CPT/HCPCS: 36415; 80053; 83036

== ENCOUNTER → 2024-12-09 08:02 | Outpatient (CLI) | payer MEDICARE, SELFPAY ==
[2022-09-17 15:00] VITALS: BMI 28.7
[2024-12-09 09:32] LABS: Add Manual Diff / Slide Review NO; Basophils Absolute Auto 0 /uL (0-100); Basophils Percent Auto 0.5 % (0-2); Eosinophils Absolute Auto 100 /uL (0-450); Eosinophils Percent Auto 0.8 % (2-4); Hematocrit 37.4 % (41-53); Hemoglobin 12.3 g/dL (13.5-17.5); Lymphocytes Absolute Auto 1400 /uL (1100-4500); Lymphocytes Percent Auto 17.8 % (25-40); Mean Corpuscular Hemoglobin 30.2 PG (26-34); Mean Corpuscular Volume 91.7 fL (80-100); Monocytes Absolute Auto 800 /uL (0-900); Monocytes Percent Auto 10.3 % (3-14); Neutrophils Absolute Auto 5600 /uL (1500-7000); Neutrophils Percent Auto 70.6 % (50-75); Platelet Count 323 X10^3/uL (150-400); Red Blood Cell Count 4.07 X10^6/uL (4.5-5.9); Red Cell Distribution Width 14.7 % (11.6-14.8); White Blood Cell Count 7.9 X10^3/uL (4.5-11.0)
[2024-12-09 09:43] LABS: Hemoglobin A1C% w Est Avg Glu 6.7 % (4.0-6.0)
[2024-12-09 09:53] LABS: Alanine Aminotransferase 28 IU/L (<50); Albumin 4.5 g/dL (3.5-5.0); Albumin Globulin Ratio 1.5 (1.0-2.8); Alkaline Phosphatase 147 U/L (38-126); Aspartate Aminotransferase 31 IU/L (17-59); BUN Creatinine Ratio 18.2 (6-22); Bilirubin Total 0.9 mg/dL (0.2-1.3); Blood Urea Nitrogen 24 mg/dL (9-20); Carbon Dioxide 26 mmol/L (22-32); Chloride 104 mmol/L (98-107); Cholesterol 162 mg/dL (140-199); Estimated Glomerular Filt Rate 53 mL/min (>60); Glucose 164 mg/dL (80-110); HDL Cholesterol 36 mg/dL (40-60); HEMOLYSIS < 15 (0-50); LDL Cholesterol Calculated 88 mg/dL (<100); Potassium 4.5 mmol/L (3.4-5.1); Sodium 141 mmol/L (137-145); Total Protein 7.5 g/dL (6.3-8.2); Triglycerides 192 mg/dL (35-150)
== END ==
PROVIDERS: PCP Family Medicine; Referring Provider Family Medicine; Visit Provider Family Medicine
DX: N28.9 Disorder of kidney and ureter, unspecified (principal); E11.9 Type 2 diabetes mellitus without complications; R41.89 Other symptoms and signs involving cognitive functions and awareness
CPT/HCPCS: 36415; 80053; 80061; 83036; 85025

== ENCOUNTER → 2024-12-22 13:41 | Outpatient (CLI) | payer MEDICARE, SELFPAY ==
[2022-09-17 15:00] VITALS: BMI 28.7
--- NOTE | 2024-12-22 13:42 | DI.MRI.S_ITS ---
PROCEDURE: MR HEAD/BRAIN WO CON INDICATIONS: AKATHISIA / MILD CONGNITIVE IMPAIRMENT TECHNIQUE: Non-contrast axial T1 spin echo, axial T2 fast spin echo, sagittal and axial FLAIR, coronal T2 fast spin echo, axial gradient echo, axial diffusion and ADC through the brain. COMPARISON: None. FINDINGS: Image quality: Excellent. CSF spaces: Ventricles appear symmetric in size and shape. Basal cisterns are patent. No extra-axial fluid collections. Brain: No intracranial bleeds or mass effects. There is cerebral volume loss for age. There are periventricular and deep white matter chronic small vessel ischemic changes. Brainstem appears normal. Diffusion-weighted images show no acute infarct. No chronic ischemic insults. Normal intravascular flow voids are present. Skull and face: Calvarial bone marrow is normal in signal. Orbits are normal. Note is made of bilateral lens replacements. Sinuses: Sinuses and mastoids are clear. IMPRESSION: No imaging explanation is found for this patient's presenting symptoms. Note is made of age-appropriate brain parenchymal volume loss and chronic small vessel ischemic changes. No findings of acute or subacute infarction can be seen. No prior territorial infarct can be seen. To the limits of this noncontrast study, no findings of intracranial masses or mass effect can be seen. Dictated by: Anthony Brunson M.D. on 12/22/2024 at 13:38 Approved by: Anthony Brunson M.D. on 12/22/2024 at 13:39
== END ==
LOC: MRI 13:41
PROVIDERS: PCP Family Medicine; Referring Provider Psychiatry & Neurology Neurology; Visit Provider Psychiatry & Neurology Neurology
DX: G25.71 Drug induced akathisia (principal); G31.84 Mild cognitive impairment of uncertain or unknown etiology
CPT/HCPCS: 70551

== ENCOUNTER → 2025-02-12 12:34 | Outpatient (CLI) | payer MEDICARE, SELFPAY ==
[2022-09-17 15:00] VITALS: BMI 28.7
[2025-02-12 13:23] LABS: COVID-19 CEPHEID 4-PLEX PCR Negative (Negative); Influenza A - CEPHEID Flu A NEGATIVE (NEGATIVE); Influenza B - CEPHEID Flu B NEGATIVE (NEGATIVE); Respiratory Syncytial Virus Negative (Negative)
== END ==
LOC: LAB 12:35
PROVIDERS: PCP Family Medicine; Visit Provider Physician Assistant
DX: R05.1 Acute cough (principal)
CPT/HCPCS: 0241U

== ENCOUNTER → 2025-04-09 08:29 | Outpatient (CLI) | payer MEDICARE, SELFPAY ==
[2022-09-17 15:00] VITALS: BMI 28.7
[2025-04-09 09:28] LABS: Hemoglobin A1C% w Est Avg Glu 7.0 % (4.0-6.0)
[2025-04-09 09:36] LABS: Alanine Aminotransferase 19 IU/L (<50); Albumin 4.4 g/dL (3.5-5.0); Albumin Globulin Ratio 1.5 (1.0-2.8); Alkaline Phosphatase 146 U/L (38-126); Blood Urea Nitrogen 22 mg/dL (9-20); Calcium 10.8 mg/dL (8.4-10.2); Carbon Dioxide 27 mmol/L (22-32); Chloride 106 mmol/L (98-107); Estimated Glomerular Filt Rate 51 mL/min (>60); Globulin 3.0 g/dL (1.7-4.1); Glucose 144 mg/dL (70-99); HEMOLYSIS < 15 (0-50); Potassium 5.2 mmol/L (3.4-5.1); Sodium 141 mmol/L (137-145); Total Protein 7.4 g/dL (6.3-8.2)
[2025-04-11 07:09] LABS: Calcium 10.5 mg/dL (8.6-10.2); Parathyroid Hormone, Intact 45 pg/mL (15-65)
== END ==
PROVIDERS: PCP Family Medicine; Referring Provider Family Medicine; Visit Provider Family Medicine
DX: E11.9 Type 2 diabetes mellitus without complications (principal); Z12.5 Encounter for screening for malignant neoplasm of prostate; E83.52 Hypercalcemia; N40.0 Benign prostatic hyperplasia without lower urinary tract symptoms; R97.20 Elevated prostate specific antigen [PSA]
CPT/HCPCS: 36415; 80053; 82310; 83036; 83970; G0103

== ENCOUNTER → 2025-07-24 06:57 | Outpatient (CLI) | payer MEDICARE, SELFPAY ==
[2022-09-17 15:00] VITALS: BMI 28.7
[2025-07-24 08:17] LABS: Alanine Aminotransferase 17 IU/L (<50); Albumin 4.4 g/dL (3.5-5.0); Albumin Globulin Ratio 1.4 (1.0-2.8); Alkaline Phosphatase 141 U/L (38-126); Blood Urea Nitrogen 30 mg/dL (9-20); Calcium 10.6 mg/dL (8.4-10.2); Carbon Dioxide 26 mmol/L (22-32); Chloride 105 mmol/L (98-107); Estimated Glomerular Filt Rate 55 mL/min (>60); Globulin 3.2 g/dL (1.7-4.1); Glucose 167 mg/dL (70-99); HEMOLYSIS < 15 (0-50); Potassium 4.6 mmol/L (3.4-5.1); Sodium 141 mmol/L (137-145); Total Protein 7.6 g/dL (6.3-8.2)
[2025-07-24 08:34] LABS: Free T4, Direct Thyroxine 1.17 ng/dL (0.78-2.19)
[2025-07-24 08:48] LABS: Thyroid Stimulating Hormone 1.43 uIU/mL (0.47-4.68)
== END ==
PROVIDERS: PCP Family Medicine; Referring Provider Family Medicine; Visit Provider Family Medicine
DX: R68.89 Other general symptoms and signs (principal)
CPT/HCPCS: 36415; 80053; 82310; 83970; 84439; 84443

== ENCOUNTER → 2025-07-30 08:20 | Outpatient (CLI) | payer MEDICARE, SELFPAY ==
[2022-09-17 15:00] VITALS: BMI 28.7
[2025-07-30 09:20] LABS: Cholesterol 144 mg/dL (140-199); HDL Cholesterol 43 mg/dL (40-60); Triglycerides 86 mg/dL (35-150)
[2025-07-30 09:36] LABS: Vitamin D 25 Hydroxy (D3) 70.0 ng/mL (30.0-100.0)
== END ==
PROVIDERS: PCP Family Medicine; Referring Provider Nurse Practitioner; Visit Provider Nurse Practitioner
DX: E78.5 Hyperlipidemia, unspecified (principal); E55.9 Vitamin D deficiency, unspecified
CPT/HCPCS: 36415; 80061; 82306